=== PATIENT | female | born 1960 | race Caucasian/White ===

== ENCOUNTER → 2019-12-23 11:47 | Outpatient (CLI) | payer OTHER, SELFPAY ==
--- NOTE | ~2019-12-23 | MM_ITS ---
EXAMINATION: MM screening silvia BI w chai HISTORY: Screening mammogram, family history of breast cancer in her mother and sister. TECHNIQUE: Craniocaudal and mediolateral oblique 3-D tomosynthesis images were obtained and synthetic 2-D images were generated. CAD analysis was submitted and interpreted. COMPARISON: 10/05/2017, 02/04/2016, 12/31/2013 BREAST PARENCHYMAL COMPOSITION: The breasts are almost entirely fatty. FINDINGS: There is no evidence of suspicious mass, calcification, or architectural distortion to sugg est malignancy in either breast. There has been no suspicious interval change. IMPRESSION: 1. No mammographic evidence of malignancy. 2. Recommend routine screening mammography in one year. BI-RADS Category 1: Negative Reviewed, dictated and finalized at location A. INJECTION MOLD TECHNICIAN
== END ==
PROVIDERS: PCP Family Medicine; Referring Provider Obstetrics & Gynecology; Visit Provider Nurse Practitioner Family
DX: Z12.31 Encounter for screening mammogram for malignant neoplasm of breast (principal)
CPT/HCPCS: 77063; 77067

== ENCOUNTER 2020-08-30 15:30 | Outpatient (CLI) | payer OTHER, SELFPAY ==
[2020-08-30 16:24] LABS: Alanine Aminotransferase 16 U/L (4-35); Albumin Level 4.1 g/dL (3.5-5.1); Alkaline Phosphatase 111 U/L (38-126); Anion Gap 8 mmol/L (8-16); Aspartate Amino Transferase 21 U/L (14-36); Bilirubin,Total 0.4 mg/dL (0.2-1.3); Blood Urea Nitrogen 13 mg/dL (7-17); Calcium 9.3 mg/dL (8.4-10.2); Carbon Dioxide 32 mmol/L (22-30); Chloride 101 mmol/L (98-107); Estimated Glomerular Filt Rate > 60; Glucose 104 mg/dL (65-105); Potassium 4.2 mmol/L (3.4-5.0); Sodium 141 mmol/L (137-145); Uric Acid 7.1 mg/dL (2.5-7.5)
== END 2020-08-30 15:31 | disposition home or self-care (01) ==
LOC: ANHLAB 15:32
PROVIDERS: PCP Family Medicine; Visit Provider Podiatrist Foot & Ankle Surgery
DX: M10.9 Gout, unspecified (principal)
CPT/HCPCS: 36415; 80053; 84550

== ENCOUNTER 2020-11-12 07:47 | Emergency (ER) | payer OTHER, SELFPAY ==
--- NOTE | ~2020-11-12 | CT_ITS ---
EXAMINATION: CT abdomen pelvis wo con DATE: 11/12/2020 08:23 INDICATION: Left-sided abdominal pain TECHNIQUE: Computed tomography (CT) of the abdomen and pelvis was performed without intravenous contr ast. The dose-length product (DLP) was 1487.21 mGy-cm. Automated exposure control and iterative recon struction technique were employed. COMPARISON: 10/04/2018 FINDINGS: The lung bases are clear. The heart size is normal. The liver, spleen, and pancreas are nor mal. The gallbladder is surgically absent. There is mild enlargement of the common bile duct and cent ral intrahepatic ducts which is likely due to post cholecystectomy state. Bilateral adrenal masses, m easuring up to 2.4 cm on the right, are consistent with adenomas. The kidneys are unremarkable. There is colonic diverticulosis. There is edematous stranding of the pericolic fat near the mid and distal descending colon. No associated fluid or perforation is identified. The appendix is normal. No patho logically enlarged abdominal or pelvic lymph nodes are identified. There is no free intraperitoneal g as or evidence of bowel obstruction. There is a [place] ventral hernia left lower quadrant containi ng nonobstructed small bowel. There are epigastric and lower abdominal wall hernias containing fat. T here is moderate lumbar spondylosis at L5-S1. IMPRESSION: 1. Findings consistent with uncomplicated diverticulitis of the mid and distal descending colon. 2. Multiple ventral hernias. Reviewed, dictated and finalized at location A. RETE TESTER
[2020-11-12 07:59] VITALS: BP 137/71; PULSE 99; RESP 18; TEMP 36.7; O2SAT 96
--- NOTE | 2020-11-12 08:08 | ED.GENADULT ---
HPI - General Adult General Chief complaint: Abdominal Pain Stated complaint: diverticulitis flare up Time Seen by Provider: 11/12/20 08:07 Source: patient History of Present Illness HPI narrative: Patient is a 60 y/o female complaining of left sided abdominal pain starting 2 days ago. She describes her pain as sharp and like a contraction. There is no pain radiation. She rates her pain as 8/10. She took Ibuprofen, which did not help with her pain. She has no fever, chill, vomiting or diarrhea. She has history of diverticulitis. Related Data Home Medications Medication Instructions Recorded Confirmed lrzfprlmkx-zyjyhgukffkgn-mldntusm 1 cap PO Q4H PRN 11/13/19 06/06/20 50 mg-325 mg-40 mg capsule dicyclomine 20 mg tablet 20 mg PO QID 11/13/19 06/06/20 esomeprazole magnesium 40 mg 40 mg PO BID cap 11/13/19 06/06/20 capsule,delayed release Allergies Allergy/AdvReac Type Severity Reaction Status Date / Time Iodinated Contrast Media Allergy Intermediate Hives, RED Verified 11/12/20 08:13 FACE ciprofloxacin Allergy Mild Rash Verified 11/12/20 08:03 codeine Allergy Unknown Nausea Verified 11/12/20 08:03 Contrast Media Allergy Intermediate Hives / Uncoded 11/12/20 08:03 Red Face Review of Systems Constitutional: Constitutional: Denies chills, Denies fever(s), Denies headache(s) and Denies weakness Eyes: Eyes: Denies blurry vision ENT: Denies headache(s) and Denies neck pain Cardiovascular: Cardiovascular: Denies chest pain and Denies dyspnea Respiratory: Respiratory: Denies cough and Denies dyspnea Gastrointestinal: Gastrointestinal: Reports abdominal pain, Denies diarrhea, Denies nausea and Denies vomiting Genitourinary: Genitourinary: Denies hematuria and Denies dysuria Musculoskeletal: Musculoskeletal: Denies back pain and Denies neck pain Neurologic: Denies headache(s) and Denies weakness PMF Family History Family History Sibling Hypertension Father Hypertension Mother Hypertension Family history of malignant neoplasm of breast in first degree relative Social History Social History Smoking status: Never smoker Second hand tobacco smoke exposure: No Alcohol intake: never Gender identity (if verbalized by the patient): Female Exam Const: General: no acute distress and well developed Orientation/consciousness: oriented to person, oriented to place, oriented to time and patient oriented x3 HENMT: Head: normocephalic Ears: external ears normal General nose exam: Normal external nose present Eyes: General: appearance normal, both eyes and all related structures Conjunctivae: conjunctivae normal Neck: Neck: normal visual inspection and full ROM Chest: Chest palpation & inspection: normal inspection of the chest and no tenderness Resp: Effort & Inspection: normal respiratory effort Auscultation: clear to auscultation bilaterally Cardio: Rate: regular rate Rhythm: regular rhythm GI: GI Palp: No abdominal tenderness and Yes Soft to palpation Skin: General skin exam: normal color and turgor normal Neuro: General: oriented to person, oriented to place, oriented to time and patient oriented x3 Cognition (Neuro): normal cognition Extrem: General: normal to inspection, full ROM and no pedal edema Psych: Appearance: grossly normal Mental Status: mental status grossly normal Affect: normal affect Course Vital Signs Vital signs: Vital Signs Temperature 36.7 C 11/12/20 07:59 Pulse Rate 99 11/12/20 07:59 Respiratory Rate 18 11/12/20 07:59 Blood Pressure 137/71 11/12/20 07:59 Pulse Oximetry 96 11/12/20 07:59 Temperature 36.7 C 11/12/20 07:59 Pulse Rate 62 11/12/20 09:20 Respiratory Rate 15 11/12/20 09:20 Blood Pressure 117/66 11/12/20 09:20 Pulse Oximetry 97 11/12/20 09:20 Medical Decision Making Vital Signs Vital Sign
[2020-11-12] MEDS: KETOROLAC 30 MG/ML VIAL (*BKC) IV PUSH (08:15)
[2020-11-12 08:17] LABS: Basophils Absolute Auto 0.1 K/mm3 (0.0-0.1); Basophils Percent Auto 0.7 % (0.2-1.2); Eosinophils Absolute Auto 0.2 K/mm3 (0-0.3); Eosinophils Percent Auto 1.8 % (0-4.4); Hematocrit 42.1 % (37.0-47.0); Hemoglobin 13.2 g/dL (12.0-15.0); Immature Granulocyte Absolute 0.04 K/mm3 (0.00-0.031); Immature Granulocyte Percent A 0.4 % (0-0.5); Lymphocytes Absolute Auto 1.85 K/mm3 (0.9-3.2); Mean Corpuscular HGB Conc 31.4 g/dl (32-36); Mean Corpuscular Hemoglobin 28.1 pg (26-34); Mean Corpuscular Volume 89.8 fl (80-100); Mean Platelet Volume 9.2 fl (7.4-10.4); Monocytes Absolute Auto 0.7 K/mm3 (0.1-0.6); Neutrophils Absolute Auto 8.1 K/mm3 (1.3-6.7); Neutrophils Percent Auto 74.1 % (45.5-73.1); Platelet Count Result 351 k/mm3 (150-375); Red Blood Count 4.69 M/mm3 (4.2-5.4); Red Cell Distribution Width 15.8 % (11.5-14.5); White Blood Count 10.9 K/mm3 (4.5-10.0)
[2020-11-12 08:19] LABS: Add Urine Microscopic? NO; Appearance Urine Clear (Clear); Bilirubin Urine Negative (Negative); Blood Urine Negative (Negative); Color Urine Straw (Yellow); Glucose Urine UA Negative (Negative); Ketones Urine Negative (Negative); Leukocyte Esterase Ur Negative LEU/UL (Negative); Nitrate Urine Negative (Negative); Protein Urine Negative (Negative); Specific Grav Ur 1.013 (1.001-1.035); Urobilinogen Urine Negative mg/dL (<2.0)
[2020-11-12 08:29] LABS: Alanine Aminotransferase 15 U/L (4-35); Albumin Level 4.3 g/dL (3.5-5.1); Alkaline Phosphatase 104 U/L (38-126); Anion Gap 6 mmol/L (8-16); Aspartate Amino Transferase 26 U/L (14-36); Bilirubin,Total 0.6 mg/dL (0.2-1.3); Blood Urea Nitrogen 13 mg/dL (7-17); Carbon Dioxide 30 mmol/L (22-30); Chloride 105 mmol/L (98-107); Estimated CRCL calculation 104 ml/min; Estimated Glomerular Filt Rate > 60; Glucose 105 mg/dL (65-105); Lipase 48 U/L (23-300); Potassium 4.3 mmol/L (3.4-5.0); Sodium 141 mmol/L (137-145)
[2020-11-12 09:20] VITALS: BP 117/66; PULSE 62; RESP 15; O2SAT 97
[2020-11-12 10:06] VITALS: BP 113/67; PULSE 62; RESP 17; O2SAT 96
== END 2020-11-12 10:07 | disposition home or self-care (01) ==
PROVIDERS: Emergency Provider Emergency Medicine; PCP Family Medicine
DX: K57.92 Diverticulitis of intestine, part unspecified, without perforation or abscess without bleeding (principal)
CPT/HCPCS: 36415; 74176; 80053; 81003; 83690; 85025; 96374; 99284; J1885

== ENCOUNTER 2021-04-28 07:54 | Emergency (ER) | payer OTHER, SELFPAY ==
--- NOTE | ~2021-04-28 | CT_ITS ---
EXAMINATION: CT abdomen pelvis wo con DATE: 04/28/2021 10:46 INDICATION: Left lower abdominal pain TECHNIQUE: Computed tomography (CT) of the abdomen and pelvis was performed without intravenous contr ast. The dose-length product was 1503.38 mGy-cm. Automated exposure control and iterative reconstruct ion technique were employed. COMPARISON: CT dated 11/12/2020 FINDINGS: Lung bases are unremarkable. Heart size normal. No significant pleural or pericardial effus ion. There is fatty infiltration of the pancreas. There is a 2.4 cm right adrenal adenoma. The liver, spleen, and kidneys are unremarkable. There is a small low-density mass in the left adrenal gland al so, likely benign adenoma. Status post cholecystectomy. Nonobstructive bowel gas pattern. There is mi ld acute uncomplicated sigmoid diverticulitis. Multiple ventral hernias are present, the largest of w hich contains nonobstructed small bowel. No bowel obstruction. Normal appendix. Mild lumbar spondylos is. IMPRESSION: 1. Acute uncomplicated sigmoid diverticulitis. 2: Multiple ventral hernias. 3: Bilateral adrenal adenomas. Reviewed, dictated and finalized at location A.
[2021-04-28 08:01] VITALS: BP 175/91; PULSE 85; RESP 16; TEMP 36.1; O2SAT 97
[2021-04-28 08:50] LABS: Basophils Absolute Auto 0.1 K/mm3 (0.0-0.1); Basophils Percent Auto 0.7 % (0.2-1.2); Eosinophils Absolute Auto 0.2 K/mm3 (0-0.3); Eosinophils Percent Auto 2.1 % (0-4.4); Hematocrit 41.9 % (37.0-47.0); Hemoglobin 12.9 g/dL (12.0-15.0); Immature Granulocyte Absolute 0.02 K/mm3 (0.00-0.031); Immature Granulocyte Percent A 0.2 % (0-0.5); Lymphocytes Absolute Auto 1.34 K/mm3 (0.9-3.2); Lymphocytes Percent Auto 15.7 % (18.3-44.2); Mean Corpuscular HGB Conc 30.8 g/dl (32-36); Mean Corpuscular Hemoglobin 27.2 pg (26-34); Mean Corpuscular Volume 88.4 fl (80-100); Mean Platelet Volume 9.3 fl (7.4-10.4); Monocytes Absolute Auto 0.5 K/mm3 (0.1-0.6); Monocytes Percent Auto 5.6 % (2.6-8.5); Neutrophils Absolute Auto 6.5 K/mm3 (1.3-6.7); Neutrophils Percent Auto 75.7 % (45.5-73.1); Platelet Count Result 350 k/mm3 (150-375); Red Blood Count 4.74 M/mm3 (4.2-5.4); Red Cell Distribution Width 15.7 % (11.5-14.5); White Blood Count 8.6 K/mm3 (4.5-10.0)
[2021-04-28 09:01] LABS: Add Urine Microscopic? YES; Appearance Urine Cloudy (Clear); Bacteria Urine 3+ /hpf; Bilirubin Urine Negative (Negative); Blood Urine 2+ (Negative); Color Urine Yellow (Yellow); Glucose Urine UA Negative (Negative); Ketones Urine Negative (Negative); Leukocyte Esterase Ur 1+ LEU/UL (Negative); Mucus Urine Rare /lpf; Nitrate Urine Negative (Negative); Protein Urine Negative (Negative); Specific Grav Ur 1.008 (1.001-1.035); Squamous Epithelial Cell Urine Many /hpf (Few); Transitional Epi Cells Urine Rare /hpf (None Seen); Urobilinogen Urine Negative mg/dL (<2.0); WBC Urine 16-20 /hpf
[2021-04-28 09:04] LABS: Alanine Aminotransferase 14 U/L (4-35); Albumin Level 4.4 g/dL (3.5-5.1); Alkaline Phosphatase 115 U/L (38-126); Anion Gap 10 mmol/L (8-16); Aspartate Amino Transferase 27 U/L (14-36); Bilirubin,Total 0.7 mg/dL (0.2-1.3); Blood Urea Nitrogen 9 mg/dL (7-17); Calcium 9.4 mg/dL (8.4-10.2); Carbon Dioxide 25 mmol/L (22-30); Chloride 106 mmol/L (98-107); Estimated CRCL calculation 121 ml/min; Estimated Glomerular Filt Rate > 60; Glucose 111 mg/dL (65-105); Lipase 42 U/L (23-300); Potassium 4.8 mmol/L (3.4-5.0); Sodium 141 mmol/L (137-145)
--- NOTE | 2021-04-28 09:58 | PC.NURSE ---
pt had hyst. no urine preg needed
[2021-04-28 10:07] VITALS: BP 160/83; PULSE 64; RESP 18; O2SAT 95
[2021-04-28] MEDS: ONDANSETRON INJ 4 MG/2 ML VIAL IV PUSH (11:00)
[2021-04-28] MEDS: HYDROmorphone HCL INJ (*CRX) 1 MG/ML SYR 0.5 MG IV PUSH (11:00)
--- NOTE | 2021-04-28 11:23 | ED.ABDPAIN ---
HPI - Abdominal Pain General Chief Complaint: Abdominal Pain Stated Complaint: LLQ abdominal pain Time Seen by Provider: 04/28/21 08:25 Source: patient, RN notes reviewed and old records reviewed Mode of arrival: ambulatory Limitations: no limitations History of Present Illness HPI narrative: This is a 60 year old female with history of diverticulitis, constipation who presents for evaluation of left lower abdominal pain. She reports she has intermittent lower abdominal pain for months but this episode started last night. She reports severe lower left abdominal pain . She was diagnosed with diverticulitis in November, and she has completed antibiotics. She states she was initially started on Flagyl/Cipro but she had severe side effects so she was changed to Augmentin. She reports continued abdominal pain since November. She has been seen by her GI specialist since completing her antibiotics and she has been placed on Linzess and Bentyl. She denies fever, chills, nausea, vomiting or urinary complaints. Related Data Home Medications Medication Instructions Recorded Confirmed eiuxgtsnkz-tobrjqnayswop-mlskwpak 1 cap PO Q4H PRN 11/13/19 06/06/20 50 mg-325 mg-40 mg capsule dicyclomine 20 mg tablet 20 mg PO QID 11/13/19 06/06/20 esomeprazole magnesium 40 mg 40 mg PO BID cap 11/13/19 06/06/20 capsule,delayed release Allergies Allergy/AdvReac Type Severity Reaction Status Date / Time Iodinated Contrast Media Allergy Intermediate Hives, RED Verified 04/28/21 08:08 FACE ciprofloxacin Allergy Mild Rash Verified 04/28/21 08:08 codeine Allergy Unknown Nausea Verified 04/28/21 08:08 Contrast Media Allergy Intermediate Hives / Uncoded 04/28/21 08:08 Red Face Review of Systems Review of Systems: All systems reviewed & are unremarkable except as noted in HPI and below Constitutional: Constitutional: Denies chills and Denies fever(s) Gastrointestinal: Gastrointestinal: Reports abdominal pain, Reports constipation, Denies diarrhea and Denies vomiting Genitourinary: Genitourinary: Denies hematuria and Denies dysuria Musculoskeletal: Musculoskeletal: Reports back pain [facility] Past Medical History Medical History (Updated 04/28/21 @ 11:30 by Eladia Chi MD) Adrenal adenoma Anxiety disorder, unspecified Diverticulosis of large intestine without hemorrhage Surgical History Surgical History (Updated 04/28/21 @ 11:28 by Eladia Chi MD) Hx of cholecystectomy Family History Family History Sibling Hypertension Father Hypertension Mother Hypertension Family history of malignant neoplasm of breast in first degree relative Social History Social History Smoking status: Never smoker Second hand tobacco smoke exposure: No Alcohol intake: never Gender identity (if verbalized by the patient): Female Exam Const: General: no acute distress and alert Nutritional Appearance: obese Orientation/consciousness: patient oriented x3 Eyes: EOM: EOMs intact bilaterally Resp: Effort & Inspection: normal respiratory effort and no retractions Auscultation: clear to auscultation bilaterally Cardio: Rate: regular rate Rhythm: regular rhythm Heart sounds: no murmurs GI: GI Palp: Yes Soft to palpation, Yes Tenderness to palpation present (GI) (Diffuse), No Guarding due to palpation present (GI) and No Rigid due to palpation Auscultation: normal bowel sounds Neuro: General: patient oriented x3, moves all extremities and CN's II-XI intact bilaterally Psych: Mental Status: mental status grossly normal Affect: normal affect Course Reevaluation(s) Reevaluation #1: I have discussed with patient CT and labs. She agrees with starting augmentin for her diverticulitis. She reports pain improved after receiving Dilaudid . Date: 04/28/21 Time: 11:28 Vital Signs Vital signs: Vital Signs
[2021-04-28 12:06] VITALS: BP 166/80; PULSE 72; RESP 18; O2SAT 97
== END 2021-04-28 12:05 | disposition home or self-care (01) ==
PROVIDERS: Emergency Provider General Practice; PCP Family Medicine
DX: K57.32 Diverticulitis of large intestine without perforation or abscess without bleeding (principal); F41.9 Anxiety disorder, unspecified; D35.02 Benign neoplasm of left adrenal gland; D35.01 Benign neoplasm of right adrenal gland; K43.9 Ventral hernia without obstruction or gangrene
CPT/HCPCS: 36415; 74176; 80053; 81001; 83690; 85025; 87086; 87088; 96374; 96375; 99284; J1170; J2405

== ENCOUNTER 2021-05-02 20:13 | Observation (INO) | payer OTHER, SELFPAY ==
--- NOTE | ~2021-05-02 | CT_ITS ---
EXAMINATION: CT abdomen pelvis wo con EXAM DATE: 05/02/2021 22:11 INDICATION: Left lower quadrant pain . TECHNIQUE: Spiral CT of the abdomen and pelvis was performed without contrast. Axial, coronal and s agittal images of the abdomen and pelvis were reviewed. The dose-length product (DLP) for this exami nation was 1377.48 mGy-cm. The exposure was tailored according to patient size (auto mA exposure con trol), and iterative reconstruction (ASIR) was used as additional dose reduction technique. Compariso n is made to prior examination from 04/28/2021. FINDINGS: Bilateral adrenal adenomas, larger on the right at 2.4 cm. The liver, spleen, adrenal glan ds and pancreas are otherwise unremarkable. There are cholecystectomy clips. There is no nephrolith iasis or hydronephrosis. Partial hysterectomy or small uterus. The bladder is unremarkable. There is no retroperitoneal or pelvic lymphadenopathy. There is mild scattered arteriosclerotic disease. Again there is mild to moderate descending and sigmoid colonic diverticulosis with moderate amount of inflammation, mild increase compared to previous examination. No abscess or perforation. Although fi ndings above are most consistent with acute diverticulitis, rarely inflammatory cancer can have a sim ilar appearance. Therefore recommend treating patient for acute diverticulitis and then obtaining a 2 -4 week followup abdomen pelvis CT. Alternatively, if patient has not had recent colonoscopy, followu p colonoscopy could be considered. The appendix is normal. There is small sliding gastroesophageal hiatal hernia. There is expected am ount of colonic stool. No free intraperitoneal gas. The heart is normal in size. There are no pe ricardial or pleural effusions. The lung bases are unremarkable. There are no osteoblastic or osteo lytic lesions identified. There is large left infraumbilical hernia containing fat and nonobstructed small bowel. IMPRESSION: 1. Mild increase in inflammation surrounding the descending/sigmoid colon, most likely acute uncompl icated diverticulitis. Inflammatory cancer less likely. 2. Large ventral hernia containing nonobstructed small bowel. 3. Small gastroesophageal hiatal hernia. 4. Adrenal adenomas. Reviewed, dictated and finalized at location G. IMPRESSION: 1. Mild increase in inflammation surrounding the descending/sigmoid colon, mos t likely acute uncomplicated diverticulitis. Inflammatory cancer less likely. 2. Large ventral hernia containing nonobstructed small bowel. 3. Small gastroesophageal hiatal hernia. 4. Adrenal adenomas.
[2021-05-02 20:14] VITALS: PULSE 82; RESP 14; TEMP 37.4; O2SAT 99
[2021-05-02 20:23] VITALS: BP 177/80; PULSE 72; RESP 16; TEMP 36.6; O2SAT 98
[2021-05-02 20:34] LABS: Basophils Absolute Auto 0.1 K/mm3 (0.0-0.1); Basophils Percent Auto 0.4 % (0.2-1.2); Eosinophils Absolute Auto 0.2 K/mm3 (0-0.3); Eosinophils Percent Auto 1.6 % (0-4.4); Hematocrit 44.1 % (37.0-47.0); Hemoglobin 13.6 g/dL (12.0-15.0); Immature Granulocyte Absolute 0.03 K/mm3 (0.00-0.031); Immature Granulocyte Percent A 0.2 % (0-0.5); Lymphocytes Absolute Auto 1.94 K/mm3 (0.9-3.2); Lymphocytes Percent Auto 15.1 % (18.3-44.2); Mean Corpuscular HGB Conc 30.8 g/dl (32-36); Mean Corpuscular Hemoglobin 27.6 pg (26-34); Mean Corpuscular Volume 89.5 fl (80-100); Monocytes Absolute Auto 0.6 K/mm3 (0.1-0.6); Monocytes Percent Auto 4.7 % (2.6-8.5); Platelet Count Result 401 k/mm3 (150-375); Red Blood Count 4.93 M/mm3 (4.2-5.4); Red Cell Distribution Width 15.4 % (11.5-14.5); White Blood Count 12.9 K/mm3 (4.5-10.0)
[2021-05-02 20:46] LABS: Alanine Aminotransferase 15 U/L (4-35); Albumin Level 4.6 g/dL (3.5-5.1); Alkaline Phosphatase 123 U/L (38-126); Anion Gap 9 mmol/L (8-16); Aspartate Amino Transferase 25 U/L (14-36); Bilirubin,Total 0.5 mg/dL (0.2-1.3); Blood Urea Nitrogen 10 mg/dL (7-17); Calcium 9.9 mg/dL (8.4-10.2); Carbon Dioxide 30 mmol/L (22-30); Chloride 103 mmol/L (98-107); Estimated CRCL calculation 92 ml/min; Estimated Glomerular Filt Rate > 60; Glucose 103 mg/dL (65-105); Lipase 58 U/L (23-300); Potassium 4.3 mmol/L (3.4-5.0); Sodium 142 mmol/L (137-145)
--- NOTE | 2021-05-02 20:54 | ED.ABDPAIN ---
HPI - Abdominal Pain General Chief Complaint: Abdominal Pain Stated Complaint: abd pain Time Seen by Provider: 05/02/21 20:33 Source: patient Mode of arrival: ambulatory Limitations: no limitations History of Present Illness HPI narrative: Patient is a 60-year-old female complaining of lower abdominal pain, 8 out of 10, sharp, nonradiating that started 1 week ago. Patient was seen here on 04/28 and was diagnosed with acute diverticulitis and was placed on oral antibiotics. Patient states that she is not feeling better. Related Data Home Medications Medication Instructions Recorded Confirmed oounndvkox-lhhrumqvtiztr-rkywruyd 1 cap PO Q4H PRN 11/13/19 06/06/20 50 mg-325 mg-40 mg capsule dicyclomine 20 mg tablet 20 mg PO QID 11/13/19 06/06/20 esomeprazole magnesium 40 mg 40 mg PO BID cap 11/13/19 06/06/20 capsule,delayed release Allergies Allergy/AdvReac Type Severity Reaction Status Date / Time Iodinated Contrast Media Allergy Intermediate Hives, RED Verified 05/02/21 20:13 FACE ciprofloxacin Allergy Mild Rash Verified 05/02/21 20:13 codeine Allergy Unknown Nausea Verified 05/02/21 20:13 Contrast Media Allergy Intermediate Hives / Uncoded 05/02/21 20:13 Red Face Review of Systems Review of Systems: All systems reviewed & are unremarkable except as noted in HPI and below Constitutional: Constitutional: Denies body ache(s), Denies chills, Denies excessive sweating, Denies fatigue, Denies fever(s), Denies headache(s), Denies lethargy, Denies malaise, Denies weakness and Denies weight loss Eyes: Eyes: Denies blurry vision, Denies change in vision and Denies loss of vision ENT: Denies dizziness, Denies ear discharge, Denies headache(s), Denies lip swelling, Denies epistaxis, Denies nasal congestion, Denies neck pain, Denies throat swelling and Denies tongue swelling Cardiovascular: Cardiovascular: Denies chest pain, Denies chest pain at rest, Denies chest pain with activity, Denies diaphoresis, Denies rapid heart rate, Denies edema, Denies irregular heart rhythm, Denies lightheadedness, Denies palpitations, Denies dyspnea and Denies dyspnea on exertion Respiratory: Respiratory: Denies chest congestion, Denies cough, Denies hemoptysis, Denies dyspnea and Denies dyspnea on exertion Gastrointestinal: Gastrointestinal: Denies melena, Denies hematochezia, Denies diarrhea, Denies nausea, Denies vomiting and Denies hematemesis Musculoskeletal: Musculoskeletal: Denies abnormal gait, Denies deformity, Denies joint swelling, Denies limited range of motion, Denies neck pain and Denies numbness Neurologic: Denies Abnormal speech present, Denies abnormal gait, Denies confusion, Denies dizziness, Denies headache(s), Denies focal weakness, Denies loss of vision, Denies numbness, Denies Other visual disturbances, Denies Sensory deficit (Neuro) and Denies weakness Psychiatric: Psychiatric: Denies confusion, Denies depression, Denies auditory hallucinations, Denies homicidal ideation and Denies suicidal ideation Endocrine: Endocrine: Denies cold intolerance, Denies excessive sweating, Denies fatigue, Denies heat intolerance and Denies palpitations Hematologic/Lymphatic: Hematologic/Lymphatic: Denies easy bleeding and Denies easy bruising Allergic/Immunologic: Allergic/Immunologic: Denies lip swelling, Denies throat swelling and Denies tongue swelling PMFSH Past Medical History Medical History Adrenal adenoma Anxiety disorder, unspecified Diverticulosis of large intestine without hemorrhage Surgical History Surgical History Hx of cholecystectomy Family History Family History Sibling Hypertension Father Hypertension Mother Hypertension Family history of malignant neoplasm of breast in first degree relative Social History Social History (Reviewed
[2021-05-02] MEDS: KETOROLAC 30 MG/ML VIAL (*BKC) IV PUSH (21:54)
[2021-05-02] MEDS: LACTATED RINGERS 1,000 ML 999 ML IV CONT (21:54)
[2021-05-02 22:01] LABS: Add Urine Microscopic? YES; Appearance Urine Clear (Clear); Bacteria Urine Trace /hpf; Bilirubin Urine Negative (Negative); Blood Urine 2+ (Negative); Color Urine Straw (Yellow); Glucose Urine UA Negative (Negative); Ketones Urine Negative (Negative); Leukocyte Esterase Ur Negative LEU/UL (Negative); Mucus Urine Rare /lpf; Nitrate Urine Negative (Negative); Protein Urine Negative (Negative); Squamous Epithelial Cell Urine Few /hpf (Few); Urobilinogen Urine Negative mg/dL (<2.0)
--- NOTE | 2021-05-03 00:17 | ADMGEN ---
This patient, Vicky Hammond, was admitted to [facility] Surg Room 309-01. Patient/family oriented to hospital policies and general routines including ID bracelet, bed and alarms, visiting hours, pain management, procedures, bathroom and other care routines, personal items, smoking policy, room service/diet, and visiting hours. Information on how to activate the Rapid Response Team has been discussed. Patient/Family are encouraged to report perceived risks to care and to ask questions if they do not understand what they are told or what they should do.
[2021-05-03 00:22] VITALS: BMI 47.5
[2021-05-03 00:23] VITALS: BP 123/57; PULSE 62; RESP 18; TEMP 36.1; O2SAT 98
--- NOTE | 2021-05-03 00:58 | PM.IMHP ---
H&P: HPI History of Present Illness Date/Time: 05/02/21 23:15 Chief Complaint: abdominal pain, recent diagnosis of diverticulitis Narrative: 60-year-old female with a past medical history of obesity, irritable bowel syndrome, diverticulosis with history of diverticulitis who presented to the ER with worsening abdominal pain for the last week. she reports that she developed left lower quadrant abdominal pain approximately 8 days ago. She came to the ER 5 days ago and was given a prescription for Augmentin after CT scan demonstrated acute diverticulitis. Despite taking antibiotics as directed the patient has had persistent cramping left lower quadrant abdominal pain that is worse after eating. The pain is a 10/10 it is worsened currently 7/10 after receiving Toradol in the ER. It is not accompanied by any nausea or vomiting. She reports that she has issues with IBS with constipation and takes Linzess. After she takes her Linzess she usually has loose stools for the rest the day. She has not had any mucousy stools or blood in her stools. She denies any fevers but has had some chills. She had a prior episode of diverticulitis about 5 years ago. She reports that she does have intermittent to somewhat chronic left lower abdominal pain. She feels like her abdominal symptoms affect her life on a day-to-day basis. She reports that her weight has been stable. She is having difficulty finding motivation to lose weight and exercise. She reports that she feels tired often but usually does not feel tired when she wakes up. She denies any snoring or excessive daytime sleepiness. Review of Systems Review of Systems: Narrative: 12 systems were reviewed with pertinent positives and negatives per HPI. Except as documented in the HPI, all other systems were reviewed and are negative. [facility] Past Medical History Medical History (Updated 05/03/21 @ 03:20 by Grace Wesley DO) Adrenal adenoma Anxiety disorder, unspecified COVID-19 vaccine series completed Diverticulosis of large intestine without hemorrhage With history of diverticulitis 2017 GERD (gastroesophageal reflux disease) Hepatic steatosis Hypothyroidism Irritable bowel disease Obesity Surgical History Surgical History (Updated 05/03/21 @ 01:03 by Grace Wesley DO) H/O hysterectomy for benign disease History of History of unilateral oophorectomy History of ventral hernia repair Hx of cholecystectomy x2 Hx of tonsillectomy Family History Family History Sibling Hypertension Father , at age 79 Hypertension Abdominal aortic aneurysm Mother , at age 82 Hypertension Breast cancer, Onset Age: 52 Social History Social History (Updated 05/03/21 @ 01:09 by Grace Wesley DO) Social History: She has been for 27 years. She has 2 children son who is 38 and arteries 34. 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 She is a lifelong nonsmoker. She does not drink alcohol. She denies illicit substance use. Primary care physician: Dr. Ron Malik code status: Full code surrogate decision maker: Smoking status: Former smoker Second hand tobacco smoke exposure: No Alcohol intake: never Substance use: never Substance use type: does not use Gender identity (if verbalized by the patient): Female Spiritual care concerns: No Comments She has 5 sisters and 3 brothers. Several liver siblings have hypertension. One has renovascular hypertension. Meds Home Medications and Allergies Home Medications Medication Instructions Recorded Confirmed Type dicyclomine 20 mg tablet 20 mg PO QID 11/13/19 05/03/21 History esomeprazole magnesium 40 mg 40 mg PO BID cap 11/13/19 05/03/21 History capsule,delayed release alprazolam 0.5 mg tablet 0.5 mg PO BID PRN #20 tablet 03/05/20 05/03/21 Rx furosemide 20 mg ta
[2021-05-03] MEDS: LACTATED RINGERS 1,000 ML 125 ML IV CONT ×3 (01:04→20:05)
[2021-05-03 06:00] VITALS: BP 130/66; PULSE 57; RESP 18; TEMP 35.8; O2SAT 95
[2021-05-03] MEDS: LEVOTHYROXINE SODIUM 100 MCG TABLET PO (06:08)
[2021-05-03] MEDS: LEVOTHYROXINE SODIUM 75 MCG TABLET PO (06:08)
[2021-05-03] MEDS: ESCITALOPRAM OXALATE 10 MG TABLET PO (09:07)
[2021-05-03] MEDS: DICYCLOMINE HCL 10 MG CAPSULE 20 MG PO ×4 (09:07→20:05)
[2021-05-03] MEDS: PANTOPRAZOLE 40 MG TABLET PO ×2 (09:08→16:22)
[2021-05-03] MEDS: ENOXAPARIN 40 MG/0.4 ML SYRINGE SUB-Q (09:55)
[2021-05-03 12:22] VITALS: O2SAT 94
--- NOTE | 2021-05-03 13:16 | PM.IMPN ---
Progress Note: A&P Assessment and Plan (1) Acute diverticulitis: Code(s): K57.92 - Diverticulitis of intestine, part unspecified, without perforation or abscess without bleeding Status: Acute Assessment and Plan: Patient presents with worsening abdominal pain. ED visit 04/28 - discharged with oral antibiotics. Returned with worsening abdominal pain. Repeat CT abd/pel shows acute diverticulitis without perforation or abscess. Recommend follow up CT 2-4 weeks given the amount of inflammation. Continue antibiotics with IV Zosyn. Supportive care with tylenol, home Bentyl. Low fiber diet. Seen by signal operator technical. (2) Hypothyroidism: Qualifiers: Hypothyroidism type: acquired Qualified Code(s): E03.9 - Hypothyroidism, unspecified Code(s): E03.9 - Hypothyroidism, unspecified Status: Chronic Assessment and Plan: Continue home levothyroxine. (3) Anxiety disorder, unspecified: Qualifiers: Anxiety disorder type: generalized anxiety disorder Qualified Code(s): F41.1 - Generalized anxiety disorder Code(s): F41.9 - Anxiety disorder, unspecified Status: Chronic Assessment and Plan: Stable. Continue home medications. (4) Irritable bowel syndrome (IBS): Code(s): K58.9 - Irritable bowel syndrome without diarrhea Status: Chronic Assessment and Plan: Continue home Bentyl. Her reject opener is Dr Buchanan. (5) GERD (gastroesophageal reflux disease): Code(s): K21.9 - Gastro-esophageal reflux disease without esophagitis Status: Chronic Assessment and Plan: PPI. Subjective Date/time seen: 05/03/21 13:00 Interval history: Ms. Hammond is a pleasant 60yo F admitted with acute diverticulitis. She reports feeling maybe a little improved today. Reports left lower quadrant abdominal pain is present but improved some. A BM this morning was partly liquid, partly formed without blood. Denies nausea or vomiting. Has tolerated some yogurt and an georgian muffin for breakfast. Review of Systems Review of Systems: All systems reviewed & are unremarkable except as noted in HPI and below Exam Narrative: Exam Narrative: General: Female resting supine in bed in no acute distress. HEENT: Normocephalic, EOMI, oral mucosa moist. Cardiovascular: Rate and rhythm are regular. Respiratory: Lungs clear to auscultation bilaterally. Respirations even and non-labored. Tolerating room air. Abdomen: Soft, non-distended, bowel sounds present. Tenderness to palpation of left lower quadrant without guarding. Extremities: Peripheral pulses intact. No edema or pain to palpation. Neuro: Awake and alert; answering questions appropriately. No focal neurological deficits. Speech is clear. Objective Data Vital Signs Vital Signs: Last Vital Signs Temp 96.5 F L 05/03/21 06:00 Pulse 57 L 05/03/21 06:00 Resp 18 05/03/21 06:00 BP 130/66 05/03/21 06:00 Pulse Ox 94 05/03/21 12:22 Intake/Output Intake/Output: Intake & Output 04/30/21 05/01/21 05/02/21 05/03/21 23:59 23:59 23:59 23:59 Intake Total 1000 1460 Balance 1000 1460 Meds/Results Medications: Active Medications Generic Name Dose Route Start Last Admin Trade Name Freq PRN Reason Stop Dose Admin Alprazolam 0.5 mg 05/03/21 01:11 Alprazolam (*Crx) 0.5 Mg Tablet PO BID PRN anxiety Dicyclomine HCl 20 mg 05/03/21 09:00 05/03/21 12:20 Dicyclomine Hcl 10 Mg Capsule PO 20 mg QID JONATHAN Administration Enoxaparin Sodium 40 mg 05/03/21 09:00 05/03/21 09:55 Enoxaparin 40 Mg/0.4 Ml Syringe SUB-Q 40 mg DAILY JONATHAN Administration Escitalopram Oxalate 10 mg 05/03/21 09:00 05/03/21 09:07 Escitalopram Oxalate 10 Mg Tablet PO 1
--- NOTE | 2021-05-03 13:38 | PCNSR ---
On 05/03/21, the student, Michelle Mendez, provided care and completed [facility] documentation on this patient. I have reviewed the student's documentation and agree with the findings.
[2021-05-03 16:00] VITALS: BP 153/70; PULSE 65; RESP 12; TEMP 36.3; O2SAT 97
[2021-05-03 23:46] VITALS: BP 137/65; PULSE 77; RESP 18; TEMP 36.4; O2SAT 97
[2021-05-04] MEDS: LEVOTHYROXINE SODIUM 100 MCG TABLET PO (06:01)
[2021-05-04] MEDS: LEVOTHYROXINE SODIUM 75 MCG TABLET PO (06:01)
[2021-05-04 08:00] VITALS: PULSE 77; RESP 18; O2SAT 97
[2021-05-04] MEDS: ENOXAPARIN 40 MG/0.4 ML SYRINGE SUB-Q (08:17)
[2021-05-04] MEDS: DICYCLOMINE HCL 10 MG CAPSULE 20 MG PO (08:17)
[2021-05-04] MEDS: PANTOPRAZOLE 40 MG TABLET PO (08:17)
[2021-05-04] MEDS: ESCITALOPRAM OXALATE 10 MG TABLET PO (08:17)
--- NOTE | 2021-05-04 11:11 | PM.DS ---
DS: Admitting Diagnosis Admitting Diagnosis Admitting Diagnosis: Acute diverticulitis DS: Discharge Diagnosis Discharge Diagnosis (1) Acute diverticulitis: Code(s): K57.92 - Diverticulitis of intestine, part unspecified, without perforation or abscess without bleeding Status: Acute Assessment and Plan: Date of Admission 05/02/21 Date of Discharge 05/04/21 Ms. Hammond is a very pleasant 60yo F with history of irritable bowel syndrome, hypothyroidism, anxiety, GERD who presented to the ED for evaluation of worsening abdominal pain. She was seen in our ED 04/28/21, diagnosed with acute diverticulitis and appropriately discharged with oral Augmentin (patient has intolerance to Cipro). Patient took the antibiotics as prescribed which ultimately did not provide much relief in her abdominal pain/cramping thus she presented to the ED for re-evaluation 05/02/21. Repeat CT abd/pelvis again showed diverticulitis without evidence of perforation or abscess. Given the degree of inflammation, the radiologist who read the study recommended repeat CT in 2-4 weeks. She was admitted to the hospitalist service for management of acute diverticulitis. She was started on broad-spectrum abx with IV Zosyn which she tolerated well. She was treated supportively with Bentyl, tylenol, IV hydration, bowel rest and her diet was advanced gradually. She clinically improved and was tolerating a low-fiber diet prior to discharge. She was seen by the bakery worker and was educated on following a low-fiber diet during acute illness, and taught that she may benefit from following a high-fiber diet after her acute flare to help reduce incidence of repeat episodes. She is feeling better and is hemodynamically stable for discharge 05/04/21. She has most of the oral augmentin leftover at home from her ED visit and is prescribed an additional script to continue Augmentin for total 14 day course. She is encouraged to follow up with her PCP and her seal skinner, Dr Buchanan. (2) Hypothyroidism: Qualifiers: Hypothyroidism type: acquired Qualified Code(s): E03.9 - Hypothyroidism, unspecified Code(s): E03.9 - Hypothyroidism, unspecified Status: Chronic Assessment and Plan: Maintained on home levothyroxine. (3) Anxiety disorder, unspecified: Qualifiers: Anxiety disorder type: generalized anxiety disorder Qualified Code(s): F41.1 - Generalized anxiety disorder Code(s): F41.9 - Anxiety disorder, unspecified Status: Chronic Assessment and Plan: Stable. Continue home medications. (4) Irritable bowel syndrome (IBS): Code(s): K58.9 - Irritable bowel syndrome without diarrhea Status: Chronic Assessment and Plan: Continue home Bentyl. Her seal skinner is Dr Buchanan. (5) GERD (gastroesophageal reflux disease): Code(s): K21.9 - Gastro-esophageal reflux disease without esophagitis Status: Chronic Assessment and Plan: PPI. DS: Summary Hospital Course Hospital Course: See above. Time Spent with Patient Time attestation: Total time spent providing and/or coordinating discharge services: 35 minutes Exam Narrative: Exam Narrative: General: Female resting supine in bed in no acute distress. HEENT: Normocephalic, EOMI, oral mucosa moist. Cardiovascular: Rate and rhythm are regular. Respiratory: Lungs clear to auscultation bilaterally. Respirations even and non-labored. Tolerating room air. Abdomen: Soft, non-distended, bowel sounds present. Tenderness to palpation of left lower quadrant without guarding. Extremities: Peripheral pulses intact. No edema or pain to palpation. Neuro: Awake and alert; answering questions appropriately. No focal neurological deficits. S
--- NOTE | 2021-05-14 08:30 | PC.NURSE ---
Blood cx are negative.
== END 2021-05-04 14:10 | disposition home or self-care (01) ==
LOC: ANHED 23:00 → ANH3MEDSUR 05-03 10:11
PROVIDERS: Admitting Provider Internal Medicine; Emergency Provider Emergency Medicine; PCP Family Medicine; Visit Provider Internal Medicine
DX: K57.92 Diverticulitis of intestine, part unspecified, without perforation or abscess without bleeding (principal); E03.9 Hypothyroidism, unspecified; F41.9 Anxiety disorder, unspecified; K58.9 Irritable bowel syndrome, unspecified; K21.9 Gastro-esophageal reflux disease without esophagitis; R10.9 Unspecified abdominal pain; D35.00 Benign neoplasm of unspecified adrenal gland; K44.9 Diaphragmatic hernia without obstruction or gangrene; K43.9 Ventral hernia without obstruction or gangrene; E66.9 Obesity, unspecified; Z68.42 Body mass index [BMI] 45.0-49.9, adult; R68.83 Chills (without fever); K76.0 Fatty (change of) liver, not elsewhere classified; Z82.49 Family history of ischemic heart disease and other diseases of the circulatory system; Z79.899 Other long term (current) drug therapy; Z90.49 Acquired absence of other specified parts of digestive tract; Z79.891 Long term (current) use of opiate analgesic
CPT/HCPCS: 36415; 74176; 80053; 81001; 83690; 85025; 87040; 96361; 96365; 96366; 96372; 96374; 96376; 99285; A9270; G0378; J1650; J1885; J2543; J7120

== ENCOUNTER → 2021-08-10 09:08 | Outpatient (CLI) | payer OTHER, SELFPAY ==
--- NOTE | ~2021-08-10 | US_ITS ---
EXAMINATION: US abdomen complete DATE: 08/10/2021 09:31 INDICATION: Gaseous abdominal distention with bloating and discomfort. TECHNIQUE: Multiple grayscale and Doppler ultrasound images of the abdomen were obtained. COMPARISON: CT dated 05/02/2021 FINDINGS: Abdominal aorta is normal in caliber measuring 2.4 cm at the proximal aorta, 1.6 mm in the mid aorta and tapering to 1.4 cm in the distal aorta. The visualized proximal to mid inferior vena cava is norm al. The pancreatic head and body are normal in appearance. The pancreatic tail is not visualized. Li gutierrez has normal echogenicity and contour, with a smooth surface. No liver lesion identified. No intrah epatic biliary duct dilation suspected. Portal venous flow was seen in the hepatopetal, normal direct ion and has normal Doppler waveform. The gallbladder is not visualized and reportedly surgically abse nt. Common bile duct measures 6 mm diameter which is normal. There is normal renal contour and echoge nicity bilaterally. The right kidney measures 12.5 x 5.0 x 6.2 cm and the left 12.0 x 5.4 x 5.5 cm. There are no focal renal lesions identified. There is no hydronephrosis. Spleen is normal measuring 11.2 cm in maximal length. IMPRESSION: 1. Status post cholecystectomy. Otherwise normal abdominal ultrasound. Reviewed, dictated and finalized at location A.
== END ==
PROVIDERS: PCP Nurse Practitioner Family; Visit Provider Nurse Practitioner Family
DX: R14.0 Abdominal distension (gaseous) (principal); Z90.49 Acquired absence of other specified parts of digestive tract
CPT/HCPCS: 76700

== ENCOUNTER 2021-09-23 17:18 | Outpatient (CLI) | payer OTHER, SELFPAY ==
--- NOTE | ~2021-09-23 | XR_ITS ---
EXAMINATION: XR chest 2V 09/23/2021 17:36 INDICATION: Headache and cough. Sinusitis. PROCEDURE: 2 view chest COMPARISON: 06/30/2016 FINDINGS: The lungs are clear. The cardiomediastinal silhouette is within normal limits. There are no pleural effusions. There is no pneumothorax suspected. IMPRESSION: 1: NO ACUTE CARDIOPULMONARY DISEASE. Reviewed, dictated and finalized at location A. E BANKER
== END 2021-09-23 17:19 | disposition home or self-care (01) ==
LOC: ANHIMG 17:22
PROVIDERS: PCP Nurse Practitioner Family; Visit Provider Nurse Practitioner Family
DX: R05.9 Cough, unspecified (principal)
CPT/HCPCS: 71046

== ENCOUNTER 2021-10-14 09:08 | Emergency (ER) | payer OTHER, SELFPAY ==
--- NOTE | 2021-10-14 09:15 | ED.URI ---
HPI - URI/Sore Throat General Chief Complaint: Upper Respiratory Infection Stated Complaint: Cough,Congestion Time Seen by Provider: 10/14/21 09:15 Source: patient, RN notes reviewed and old records reviewed Mode of arrival: ambulatory Limitations: no limitations History of Present Illness HPI Narrative: 61-year-old female presents to the [facility] with complaints of cough and congestion. Had a chest x-ray on 09/23, 3 weeks ago which was clear. Patient states that all night she has had this chest discomfort that is radiating to her left arm and left jaw area. Patient described as when she visited [place] and was having trouble with her oxygen levels. States that she has been feeling short of breath. At first thought it was her anxiety, had taken her Xanax with no relief. Has had intermittent shortness of breath. does have a history of anxiety, thyroid issues, acid reflux, depression. Movement does not make it worse. Cannot reproduce pain. Denies any diaphoresis. No nausea vomiting or diarrhea. Denies fevers. Has been on 2 rounds of antibiotics recently for a sinus/bronchitis episode. MD elicited complaint: cough Related Data Home Medications Medication Instructions Recorded Confirmed dicyclomine 20 mg tablet 20 mg PO QID 11/13/19 10/03/21 esomeprazole magnesium 40 mg 40 mg PO BID cap 11/13/19 10/03/21 capsule,delayed release linaclotide 72 mcg capsule 72 mcg PO QAM 05/13/21 10/03/21 Allergies Allergy/AdvReac Type Severity Reaction Status Date / Time Iodinated Contrast Media Allergy Intermediate Hives, RED Verified 09/24/21 16:01 FACE ciprofloxacin Allergy Mild Rash Verified 09/24/21 16:01 codeine Allergy Unknown Nausea Verified 09/24/21 16:01 Contrast Media Allergy Intermediate Hives / Uncoded 09/24/21 16:01 Red Face Review of Systems Review of Systems: All systems reviewed & are unremarkable except as noted in HPI and below Constitutional: Constitutional: Reports no additional constitutional complaints, Denies chills and Denies fever(s) Eyes: Eyes: Reports no additional eye complaints ENT: Reports system reviewed and no additional complaints, except as documented Cardiovascular: Cardiovascular: Reports as per HPI, Reports chest pain (Pressure), Denies rapid heart rate, Reports radiating jaw, neck or arm pain (Left shoulder, left posterior head and neck) and Denies slow heart rate Respiratory: Respiratory: Reports as per HPI, Denies chest congestion, Reports cough, Reports dyspnea and Denies wheezing Gastrointestinal: Gastrointestinal: Reports no additional gastrointestinal complaints, Denies abdominal pain, Denies diarrhea, Denies nausea and Denies vomiting Musculoskeletal: Musculoskeletal: Reports no additional musculoskeletal complaints Integumentary/Breasts: Skin/Breast: Reports system reviewed and no additional complaints, except as docu Neurologic: Reports system reviewed and no additional complaints, except as documented Psychiatric: Psychiatric: Reports no additional psychiatric complaints Allergic/Immunologic: Allergic/Immunologic: Reports no additional allergic/immunologic complaints [facility] Past Medical History Medical History Adrenal adenoma Anxiety disorder, unspecified BMI 45.0-49.9, adult COVID-19 vaccine series completed Diverticulosis of large intestine without hemorrhage With history of diverticulitis 2016 GERD (gastroesophageal reflux disease) Hepatic steatosis Hypothyroidism Irritable bowel disease Irritable bowel syndrome (IBS) Morbid (severe) obesity due to excess calories Obesity Surgical History Surgical History H/O hysterectomy for benign disease History of History of unilateral oophorectomy History of ventral hernia repair Hx of cholecystectomy x2 Hx of tonsillectomy Family History Family History Camryn
[2021-10-14 09:17] VITALS: BP 146/81; PULSE 71; RESP 18; TEMP 36.1; O2SAT 99
--- NOTE | 2021-10-14 09:30 | ECG_ITS ---
Measurements Intervals [place] Rate: 71 P: 40 [place]: 185 QRS: -37 QRSD: 103 T: 32 QT: 397 QTc: 432 Interpretive Statements SINUS RHYTHM LEFT AXIS DEVIATION POOR R WAVE PROGRESSION, ANTERIOR LEADS BASELINE ARTIFACT- I, II, III, AVR, AVF, V1-V6 BORDERLINE ECG Electronically Signed On 10-14-2021 10:04:42 DRIER TENDER by Moiz Arora D.O.
== END 2021-10-14 09:33 | disposition short-term general hospital (02) ==
PROVIDERS: Emergency Provider Nurse Practitioner; PCP Family Medicine
DX: R07.9 Chest pain, unspecified (principal); E03.9 Hypothyroidism, unspecified
CPT/HCPCS: 93005; 99213; G0463

== ENCOUNTER 2021-10-14 09:47 | Emergency (ER) | payer OTHER, SELFPAY ==
[2021-10-14] VITALS (17 sets, daily range): BP systolic 120–195; BP diastolic 62–92; PULSE 57–80; RESP 10–21; TEMP 36.9; O2SAT 95–100
--- NOTE | ~2021-10-14 | XR_ITS ---
EXAMINATION: XR chest 2V DATE: 10/14/2021 10:12 INDICATION: Left chest pain. TECHNIQUE: Frontal and lateral views of the chest were obtained. COMPARISON: Chest 2 views 09/23/2021, CT abdomen and pelvis 05/02/2021 FINDINGS: The chest demonstrates clear lungs without pneumonia, pleural effusion, or pneumothorax. Th e heart size is normal. IMPRESSION: 1. No acute cardiopulmonary disease. Reviewed, dictated and finalized at location A. E BRICK MOLDER
--- NOTE | ~2021-10-14 | NM_ITS ---
NM pulmonary perfusion INDICATION: Chest pain TECHNIQUE: Ventilation scan, 5.5 mCi Tc 99m MAA was injected intravenously for perfusion images. Mul tiple images were then acquired. COMPARISON: Chest x-ray dated 10/14/2021 FINDINGS: The comparison chest radiograph demonstrates no pulmonary infiltrates or pleural fluid. Th e perfusion scan is normal. IMPRESSION: 1: Normal perfusion images. Reviewed, dictated and finalized at location A. TH INFORMATION MANAGER IMPRESSION: 1: Normal perfusion images.
--- NOTE | 2021-10-14 10:02 | ECG_ITS ---
Measurements Intervals [place] Rate: 66 P: 10 MI: 184 QRS: -42 QRSD: 97 T: 18 QT: 384 QTc: 403 Interpretive Statements SINUS RHYTHM LEFT AXIS DEVIATION BORDERLINE R WAVE PROGRESSION, ANTERIOR LEADS BASELINE ARTIFACT- II, III, AVR, AVL, AVF BORDERLINE ECG Electronically Signed On 10-14-2021 12:31:38 CASE PREPARER AND LINER by Moiz Arora D.O.
--- NOTE | 2021-10-14 10:05 | PC.NURSE ---
Pt states she has been experiencing aching chest pain, she states she has a sinus infection a week before thanksgiving and had been coughing excessively
--- NOTE | 2021-10-14 10:06 | PC.NURSE ---
pt gone to xray
[2021-10-14 10:41] LABS: Basophils Absolute Auto 0.1 K/mm3 (0.0-0.1); Basophils Percent Auto 1.1 % (0.2-1.2); Eosinophils Absolute Auto 0.3 K/mm3 (0-0.3); Hematocrit 39.3 % (37.0-47.0); Hemoglobin 12.5 g/dL (12.0-15.0); Immature Granulocyte Absolute 0.03 K/mm3 (0.00-0.031); Immature Granulocyte Percent A 0.5 % (0-0.5); Lymphocytes Absolute Auto 1.65 K/mm3 (0.9-3.2); Lymphocytes Percent Auto 25.5 % (18.3-44.2); Mean Corpuscular HGB Conc 31.8 g/dl (32-36); Mean Corpuscular Hemoglobin 28.7 pg (26-34); Mean Corpuscular Volume 90.1 fl (80-100); Mean Platelet Volume 9.6 fl (7.4-10.4); Monocytes Absolute Auto 0.4 K/mm3 (0.1-0.6); Monocytes Percent Auto 5.7 % (2.6-8.5); Neutrophils Absolute Auto 4.1 K/mm3 (1.3-6.7); Neutrophils Percent Auto 63.2 % (45.5-73.1); Platelet Count Result 313 k/mm3 (150-375); Red Blood Count 4.36 M/mm3 (4.2-5.4); Red Cell Distribution Width 16.5 % (11.5-14.5); White Blood Count 6.5 K/mm3 (4.5-10.0)
[2021-10-14] MEDS: ASPIRIN 81 MG CHEWABLE TABLET 324 MG PO (10:47)
[2021-10-14 10:51] LABS: Prothrombin Time 12.8 Seconds (11.1-14.7)
[2021-10-14 10:52] LABS: Partial Thromboplastin Time 34.5 SECONDS (22.3-36.8)
--- NOTE | 2021-10-14 11:04 | ED.CHESTPAIN ---
HPI - Chest Pain General Chief Complaint: Chest Pain Stated Complaint: Sent from [facility] shoulder pain Time Seen by Provider: 10/14/21 10:52 Source: patient and RN notes reviewed History of Present Illness HPI narrative: Patient is a 61 y/o female complaining of left side chest discomfort since yesterday. She rates her discomfort as 1/10. She states that it radiates to her left neck and shoulder. Pressing on her left side makes it worse. She states that she had recent cough and congestion, but that has resolved. She feels SOB sometimes which she attributed to anxiety. Related Data Home Medications Medication Instructions Recorded Confirmed dicyclomine 20 mg tablet 20 mg PO QID 11/13/19 10/03/21 esomeprazole magnesium 40 mg 40 mg PO BID cap 11/13/19 10/03/21 capsule,delayed release linaclotide 72 mcg capsule 72 mcg PO QAM 05/13/21 10/03/21 Allergies Allergy/AdvReac Type Severity Reaction Status Date / Time Iodinated Contrast Media Allergy Intermediate Hives, RED Verified 10/14/21 11:27 FACE ciprofloxacin Allergy Mild Rash Verified 10/14/21 11:27 codeine Allergy Unknown Nausea Verified 10/14/21 11:27 Contrast Media Allergy Intermediate Hives / Uncoded 10/14/21 11:27 Red Face Review of Systems Constitutional: Constitutional: Denies chills, Denies fever(s), Denies headache(s) and Denies weakness Eyes: Eyes: Denies blurry vision ENT: Denies headache(s) and Denies neck pain Cardiovascular: Cardiovascular: Reports chest pain and Reports dyspnea Respiratory: Respiratory: Reports cough (resolved) and Reports dyspnea Gastrointestinal: Gastrointestinal: Denies abdominal pain, Denies diarrhea, Denies nausea and Denies vomiting Genitourinary: Genitourinary: Denies hematuria and Denies dysuria Musculoskeletal: Musculoskeletal: Denies back pain and Denies neck pain Neurologic: Denies headache(s) and Denies weakness PMFSH Past Medical History Medical History Adrenal adenoma Anxiety disorder, unspecified BMI 45.0-49.9, adult COVID-19 vaccine series completed Diverticulosis of large intestine without hemorrhage With history of diverticulitis 2016 GERD (gastroesophageal reflux disease) Hepatic steatosis Hypothyroidism Irritable bowel disease Irritable bowel syndrome (IBS) Morbid (severe) obesity due to excess calories Obesity Surgical History Surgical History H/O hysterectomy for benign disease History of History of unilateral oophorectomy History of ventral hernia repair Hx of cholecystectomy x2 Hx of tonsillectomy Family History Family History Sibling Hypertension Father , at age 79 Hypertension Abdominal aortic aneurysm Mother , at age 82 Hypertension Breast cancer, Onset Age: 52 Social History Social History Social History: She has been for 27 years. She has 2 children son who is 38 and daughter 34. 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 She is a former smoker. She does not drink alcohol. She denies illicit substance use. Primary care physician: Dr. 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
[2021-10-14 11:14] LABS: Alanine Aminotransferase 20 U/L (4-35); Albumin Level 4.1 g/dL (3.5-5.1); Alkaline Phosphatase 98 U/L (38-126); Anion Gap 7 mmol/L (8-16); Aspartate Amino Transferase 27 U/L (14-36); Bilirubin,Total 0.5 mg/dL (0.2-1.3); Blood Urea Nitrogen 11 mg/dL (7-17); Calcium 8.9 mg/dL (8.4-10.2); Carbon Dioxide 25 mmol/L (22-30); Chloride 105 mmol/L (98-107); Estimated CRCL calculation 94 ml/min; Estimated Glomerular Filt Rate > 60; Glucose 103 mg/dL (65-110); Lipase 34 U/L (23-300); Potassium 4.2 mmol/L (3.4-5.0); Sodium 137 mmol/L (137-145)
[2021-10-14 11:15] LABS: D Dimer 0.69 ug/mL (<0.48)
[2021-10-14 11:25] LABS: Troponin I < 0.012 ng/mL (0.000-0.034)
--- NOTE | 2021-10-14 11:26 | PC.NURSE ---
assumed care of pt. Pt resting comfortably on stretcher, no requests at this time
[2021-10-14 13:31] LABS: Troponin I < 0.012 ng/mL (0.000-0.034)
== END 2021-10-14 17:36 | disposition home or self-care (01) ==
PROVIDERS: Emergency Provider Emergency Medicine; PCP Family Medicine
DX: R07.89 Other chest pain (principal); K21.9 Gastro-esophageal reflux disease without esophagitis; E03.9 Hypothyroidism, unspecified; K58.9 Irritable bowel syndrome, unspecified; E66.01 Morbid (severe) obesity due to excess calories; Z68.42 Body mass index [BMI] 45.0-49.9, adult; Z87.891 Personal history of nicotine dependence; R94.31 Abnormal electrocardiogram [ECG] [EKG]
CPT/HCPCS: 36415; 71046; 78580; 80053; 83690; 84484; 85025; 85380; 85610; 85730; 93005; 99284; A9270; A9540

== ENCOUNTER → 2022-01-28 12:26 | Outpatient (CLI) | payer OTHER, SELFPAY ==
--- NOTE | ~2022-01-28 | MM_ITS ---
EXAMINATION: MM screening silvia BI w chai HISTORY: Screening mammogram, family history of breast cancer in her mother and sister. TECHNIQUE: Craniocaudal and mediolateral oblique 3-D tomosynthesis images were obtained and synthetic 2-D images were generated. CAD analysis was submitted and interpreted. COMPARISON: 12/23/2019, 10/05/2017 BREAST PARENCHYMAL COMPOSITION: There are scattered areas of fibroglandular density. FINDINGS: There is no suspicious mass, calcification, or architectural distortion to suggest malignan cy in either breast. There has been no suspicious interval change. IMPRESSION: 1. No mammographic evidence of malignancy. 2. Recommend routine screening mammography in one year. BI-RADS Category 1: Negative Reviewed, dictated and finalized at location A.
== END ==
PROVIDERS: Visit Provider Obstetrics & Gynecology
DX: Z12.31 Encounter for screening mammogram for malignant neoplasm of breast (principal)
CPT/HCPCS: 77063; 77067

== ENCOUNTER 2022-07-27 11:35 | Emergency (ER) | payer OTHER, SELFPAY ==
[2022-07-27 11:51] VITALS: BP 149/75; PULSE 71; RESP 16; TEMP 36.6; O2SAT 99
[2022-07-27 11:54] VITALS: BP 149/75; PULSE 71; RESP 16; TEMP 36.6; O2SAT 99
--- NOTE | 2022-07-27 12:17 | ED.URI ---
HPI - URI/Sore Throat General Chief Complaint: Upper Respiratory Infection Stated Complaint: sore throat Time Seen by Provider: 07/27/22 12:17 Source: patient and RN notes reviewed Mode of arrival: ambulatory Limitations: no limitations History of Present Illness HPI Narrative: 62-year-old female presents to the [facility] with complaints of irritated throat when coughing, intermittent laryngitis, sinus congestion for 4 days Denies fevers, chest pain, abdominal pain. No nausea vomiting or diarrhea. Has only taken Mucinex for her symptoms. Patient appears nontoxic. Denies respiratory heart issues Related Data Home Medications Medication Instructions Recorded Confirmed dicyclomine 20 mg tablet 20 mg PO QID 11/13/19 01/17/22 Allergies Allergy/AdvReac Type Severity Reaction Status Date / Time Iodinated Contrast Media Allergy Intermediate Hives, RED Verified 07/27/22 11:51 FACE ciprofloxacin Allergy Mild Rash Verified 07/27/22 11:51 codeine Allergy Unknown Nausea Verified 07/27/22 11:51 Contrast Media Allergy Intermediate Hives / Uncoded 07/27/22 11:51 Red Face Review of Systems Review of Systems: All systems reviewed & are unremarkable except as noted in HPI and below Constitutional: Constitutional: Reports no additional constitutional complaints, Denies chills and Denies fever(s) Eyes: Eyes: Reports no additional eye complaints ENT: Reports as per HPI and Reports nasal congestion Cardiovascular: Cardiovascular: Reports no additional cardiovascular complaints Respiratory: Respiratory: Reports no additional respiratory complaints and Reports cough Gastrointestinal: Gastrointestinal: Reports no additional gastrointestinal complaints Musculoskeletal: Musculoskeletal: Reports no additional musculoskeletal complaints Integumentary/Breasts: Skin/Breast: Reports system reviewed and no additional complaints, except as docu Neurologic: Reports system reviewed and no additional complaints, except as documented Psychiatric: Psychiatric: Reports no additional psychiatric complaints Allergic/Immunologic: Allergic/Immunologic: Reports no additional allergic/immunologic complaints [facility] Past Medical History Medical History Adrenal adenoma BMI 45.0-49.9, adult COVID-19 vaccine series completed Diverticulosis of large intestine without hemorrhage With history of diverticulitis 2016 GERD (gastroesophageal reflux disease) Hepatic steatosis Hypothyroidism Irritable bowel disease Irritable bowel syndrome (IBS) Morbid (severe) obesity due to excess calories Obesity Surgical History Surgical History H/O hysterectomy for benign disease History of History of unilateral oophorectomy History of ventral hernia repair Hx of cholecystectomy x2 Hx of tonsillectomy Family History Family History Sibling Hypertension Father , at age 79 Hypertension Abdominal aortic aneurysm Mother , at age 82 Hypertension Breast cancer, Onset Age: 52 Social History Social History Social History: She has been for 27 years. She has 2 children son who is 38 and daughter 34. 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 She is a former smoker. She does not drink alcohol. She denies illicit substance use. Primary care physician: Dr. 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
== END 2022-07-27 12:33 | disposition home or self-care (01) ==
PROVIDERS: Emergency Provider Nurse Practitioner; PCP Family Medicine
DX: J30.9 Allergic rhinitis, unspecified (principal); R09.82 Postnasal drip; Z87.891 Personal history of nicotine dependence; K21.9 Gastro-esophageal reflux disease without esophagitis; E03.9 Hypothyroidism, unspecified; K58.9 Irritable bowel syndrome, unspecified; E66.9 Obesity, unspecified; Z68.42 Body mass index [BMI] 45.0-49.9, adult; K76.0 Fatty (change of) liver, not elsewhere classified
CPT/HCPCS: 99211; G0463

== ENCOUNTER 2022-11-19 13:43 | Emergency (ER) | payer OTHER, SELFPAY ==
[2022-11-19] VITALS (8 sets, daily range): BP systolic 164; BP diastolic 77; PULSE 53–78; RESP 12–18; TEMP 36.2; O2SAT 94–98
--- NOTE | ~2022-11-19 | CT_ITS ---
EXAMINATION: CT abdomen pelvis wo con DATE: 11/19/2022 15:35 INDICATION: Left lower quadrant abdominal pain. Nausea. TECHNIQUE: Computed tomography (CT) of the abdomen and pelvis was performed without intravenous contr ast. Automated exposure control and iterative reconstruction technique were employed. The dose-length product was 1527.54 mGy-cm. COMPARISON: CT abdomen and pelvis 05/02/2021 FINDINGS: The visualized portions of the lung bases demonstrate mild atelectasis. No pleural effusion . The heart size is normal. No pericardial effusion. There are coronary artery calcifications. There is a small sliding hiatal hernia. The liver and spleen are normal. There are changes of cholecystecto my. The pancreas is normal. There are masses in the adrenal glands measuring low attenuation measurin g up to 2.5 cm on the right, consistent with adenomas. The kidneys are normal. There is no urolithias is. There are scattered diverticula in the colon. There is wall thickening of sigmoid colon with ludy cent mild fat stranding. There are no dilated loops of bowel. The appendix is normal. There is an inf raumbilical ventral hernia containing nonobstructed small bowel. There is an infraumbilical ventral h ernia containing fat. There are no pathologically enlarged lymph nodes. There is no free intraperiton eal fluid. There is severe lumbar spondylosis. IMPRESSION: 1. Mild sigmoid diverticulitis. No perforation or abscess. 2. Small sliding hiatal hernia. 3. Infraumbilical ventral hernias, one of which contains nonobstructed small bowel. Reviewed, dictated and finalized at location A. DDLE BUG OPERATOR IMPRESSION: 1. Mild sigmoid diverticulitis. No perforation or abscess. 2. Small sliding hiatal hernia. 3. Infraumbilical ventral hernias, one of which contains nonobstructed small erin wel.
[2022-11-19 13:59] LABS: Basophils Absolute Auto 0.1 K/mm3 (0.0-0.1); Basophils Percent Auto 0.8 % (0.2-1.2); Eosinophils Absolute Auto 0.1 K/mm3 (0-0.3); Eosinophils Percent Auto 2.1 % (0-4.4); Hematocrit 38.9 % (37.0-47.0); Hemoglobin 12.2 g/dL (12.0-15.0); Immature Granulocyte Absolute 0.01 K/mm3 (0.00-0.031); Immature Granulocyte Percent A 0.2 % (0-0.5); Lymphocytes Absolute Auto 1.88 K/mm3 (0.9-3.2); Lymphocytes Percent Auto 28.6 % (18.3-44.2); Mean Corpuscular HGB Conc 31.4 g/dl (32-36); Mean Corpuscular Hemoglobin 27.5 pg (26-34); Mean Corpuscular Volume 87.8 fl (80-100); Mean Platelet Volume 8.8 fl (7.4-10.4); Monocytes Absolute Auto 0.4 K/mm3 (0.1-0.6); Monocytes Percent Auto 5.3 % (2.6-8.5); Neutrophils Absolute Auto 4.2 K/mm3 (1.3-6.7); Platelet Count Result 331 k/mm3 (150-375); Red Blood Count 4.43 M/mm3 (4.2-5.4); White Blood Count 6.6 K/mm3 (4.5-10.0)
[2022-11-19 14:09] LABS: Appearance Urine Clear (Clear); Bilirubin Urine Negative (Negative); Blood Urine 1+ (Negative); Color Urine Yellow (Yellow); Glucose Urine UA Negative (Negative); Ketones Urine Negative (Negative); Leukocyte Esterase Ur Negative LEU/UL (Negative); Nitrate Urine Negative (Negative); Protein Urine Negative (Negative); Specific Grav Ur 1.015 (1.001-1.035); Urobilinogen Urine 0.2 mg/dL (<2.0); pH Urine 6.5 (5.0-9.0)
[2022-11-19 14:09] LABS: Alanine Aminotransferase 18 U/L (6-35); Albumin Level 4.3 g/dL (3.5-5.1); Alkaline Phosphatase 130 U/L (38-126); Anion Gap 5 mmol/L (8-16); Aspartate Amino Transferase 23 U/L (14-36); Bilirubin,Total 0.4 mg/dL (0.2-1.3); Blood Urea Nitrogen 8 mg/dL (7-17); Calcium 8.7 mg/dL (8.4-10.2); Carbon Dioxide 28 mmol/L (22-30); Chloride 104 mmol/L (98-107); Estimated CRCL calculation 91 ml/min; Estimated Glomerular Filt Rate > 60; Glucose 98 mg/dL (65-110); Lipase 43 U/L (23-300); Potassium 3.9 mmol/L (3.4-5.0); Sodium 137 mmol/L (137-145)
[2022-11-19 14:13] LABS: Bacteria Urine Trace /hpf; Mucus Urine Rare /lpf; Squamous Epithelial Cell Urine Rare /hpf (Few); WBC Urine 0-3 /hpf
[2022-11-19 14:21] LABS: Add Urine Microscopic? YES
--- NOTE | 2022-11-19 15:21 | ED.ABDPAIN ---
HPI - Abdominal Pain General Chief Complaint: Abdominal Pain Stated Complaint: LLQ pain Time Seen by Provider: 11/19/22 15:20 Source: patient Mode of arrival: ambulatory Limitations: no limitations History of Present Illness HPI narrative: 62 years old white female presents with left lower quadrant pain that started few hours prior to arrival to the emergency room associated with nausea. History of diverticulitis. Patient is allergic to Cipro, and Levaquin which can cause rash. Patient also cannot take Flagyl because causing severe constipation. She denies any fever, chills, vomiting, diarrhea or constipation. Patient denies aggravating or relieving factors. Had similar symptoms in the past secondary to diverticulitis. Related Data Home Medications Medication Instructions Recorded Confirmed dicyclomine 20 mg tablet 20 mg PO QID 11/13/19 01/17/22 Allergies Allergy/AdvReac Type Severity Reaction Status Date / Time Iodinated Contrast Media Allergy Intermediate Hives, RED Verified 11/19/22 15:34 FACE ciprofloxacin Allergy Mild Rash Verified 11/19/22 15:34 codeine Allergy Unknown Nausea Verified 11/19/22 15:34 Contrast Media Allergy Intermediate Hives / Uncoded 11/19/22 15:34 Red Face Review of Systems Review of Systems: All systems reviewed & are unremarkable except as noted in HPI and below PMFSH Past Medical History Medical History Adrenal adenoma BMI 45.0-49.9, adult COVID-19 vaccine series completed Diverticulosis of large intestine without hemorrhage With history of diverticulitis 2016 GERD (gastroesophageal reflux disease) Hepatic steatosis Hypothyroidism Irritable bowel disease Irritable bowel syndrome (IBS) Morbid (severe) obesity due to excess calories Obesity Surgical History Surgical History H/O hysterectomy for benign disease History of History of unilateral oophorectomy History of ventral hernia repair Hx of cholecystectomy x2 Hx of tonsillectomy Family History Family History Sibling Hypertension Father , at age 79 Hypertension Abdominal aortic aneurysm Mother , at age 82 Hypertension Breast cancer, Onset Age: 52 Social History Social History Social History: She has been for 27 years. She has 2 children son who is 38 and daughter 34. 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 She is a former smoker. She does not drink alcohol. She denies illicit substance use. Primary care physician: Dr. 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 Musculoskeletal: Normal range of motion, nontender back Neurologic: Alert and oriented ?3, ANIMAL RESEARCHER is normal as tested, no gross motor deficit
--- NOTE | 2022-11-19 15:32 | PC.NURSE ---
Patient off unit to CT
[2022-11-19] MEDS: fentaNYL CITRATE INJ (*CRX) 100 MCG/2 ML VIAL 25 MCG IV PUSH (15:39)
[2022-11-19] MEDS: ONDANSETRON INJ 4 MG/2 ML VIAL IV PUSH (15:39)
[2022-11-19] MEDS: SODIUM CHLORIDE 0.9% IV 1,000 ML 999 ML IV CONT (15:42)
== END 2022-11-19 17:40 | disposition home or self-care (01) ==
PROVIDERS: Emergency Provider Emergency Medicine; PCP Family Medicine
DX: K57.32 Diverticulitis of large intestine without perforation or abscess without bleeding (principal); E03.9 Hypothyroidism, unspecified; Z87.891 Personal history of nicotine dependence
CPT/HCPCS: 36415; 74176; 80053; 81001; 83690; 85025; 96361; 96374; 96375; 99284; J2405; J3010; J7030

== ENCOUNTER → 2023-11-13 07:59 | Outpatient (CLI) | payer OTHER, SELFPAY ==
--- NOTE | ~2023-11-13 | CT_ITS ---
Non-contrast CT scan of the Abdomen and Pelvis Clinical indication: Abdominal discomfort, adrenal adenoma Technique: 2.5 mm axial scans were obtained through the abdomen and pelvis without intravenous or or al contrast. Dose reduction technique was used on this scan by utilizing automated exposure control a nd iterative reconstruction technique. The dose-length product (DLP) was 1044.50 mGy-cm. COMPARISON: 11/19/2022 Findings: Images through the lung bases reveal no abnormalities. There is no evidence of renal or ureteral calculi. The kidneys and the ureters are nondilated. The liver, spleen, and pancreas appear normal. Bilateral low-density adrenal nodules are unchanged, c onsistent with bilateral adrenal adenomas. Cholecystectomy clips are present. There are atherosclerot ic calcifications of the aorta. There is no evidence of bowel obstruction. There are prominent ventral hernia just left of midline co ntaining several small bowel loops. No bowel obstruction. There is wall thickening and minimal inflam matory change at the proximal sigmoid colon with underlying diverticular, most compatible with mild a cute diverticulitis. No abscess or free air. Images through the pelvis were performed. There is no evidence of ascites or lymphadenopathy. Urinary bladder unremarkable. No adnexal mass seen. No ascites. Impression: Mild acute diverticulitis of the sigmoid colon. No abscess or free air. Stable ventral hernia containing small bowel loops. No bowel obstruction. Stable bilateral adrenal adenomas. Reviewed, dictated and finalized at [facility]. S MAINTAINER Impression: Mild acute diverticulitis of the sigmoid colon. No abscess or free air. Stable ventral hernia containing small bowel loops. No bowel obstruction. Stable bilateral adrenal adenomas.
== END ==
PROVIDERS: PCP Nurse Practitioner Family; Visit Provider Nurse Practitioner Family
DX: Z87.19 Personal history of other diseases of the digestive system (principal); K46.9 Unspecified abdominal hernia without obstruction or gangrene; K57.32 Diverticulitis of large intestine without perforation or abscess without bleeding; K43.9 Ventral hernia without obstruction or gangrene; D35.01 Benign neoplasm of right adrenal gland; D35.02 Benign neoplasm of left adrenal gland
CPT/HCPCS: 74176

== ENCOUNTER 2023-11-15 09:47 | Emergency (ER) | payer OTHER, SELFPAY ==
[2023-11-15 09:47] VITALS: BP 177/80; PULSE 85; RESP 16; TEMP 36.6; O2SAT 96
--- NOTE | 2023-11-15 10:08 | ED.ABDPAIN ---
HPI - Abdominal Pain General Chief Complaint: Abdominal Pain Stated Complaint: diverticulitis Time Seen by Provider: 11/15/23 09:52 Source: patient Mode of arrival: ambulatory Limitations: no limitations History of Present Illness HPI narrative: Vicky is a 63-year-old female patient presenting to the clinic today with complaints of left lower abdominal pain x1 week. Rates her pain 7/10 currently. States it is a spasming/stabbing pain to the left lower quadrant. Had a CT scan done on the 13 of November but has not gotten the results back from that yet. History of diverticulitis. She denies any urinary symptoms. No fever or chills. Related Data Allergies Allergy/AdvReac Type Severity Reaction Status Date / Time Iodinated Contrast Media Allergy Intermediate Hives, RED Verified 11/15/23 10:07 FACE ciprofloxacin Allergy Mild Rash Verified 11/15/23 10:07 codeine AdvReac Unknown Nausea Verified 11/15/23 10:16 Review of Systems Review of Systems: Pertinent positives per HPI. Patient denies any fever, chills, rash, headache, visual changes, dizziness, cough, runny nose, sore throat, shortness of breath, chest pain, palpitations, vomiting, diarrhea, constipation,or any urinary issues. [facility] Past Medical History Medical History Adrenal adenoma BMI 45.0-49.9, adult COVID-19 vaccine series completed Diverticulosis of large intestine without hemorrhage With history of diverticulitis 2016 GERD (gastroesophageal reflux disease) Hepatic steatosis Hypothyroidism Irritable bowel disease Irritable bowel syndrome (IBS) Morbid (severe) obesity due to excess calories Obesity Surgical History Surgical History H/O hysterectomy for benign disease History of History of unilateral oophorectomy History of ventral hernia repair Hx of cholecystectomy x2 Hx of tonsillectomy Family History Family History Sibling Hypertension Thyroid activity decreased Father , at age 79 Hypertension Abdominal aortic aneurysm Mother , at age 82 Hypertension Breast cancer, Onset Age: 52 Thyroid activity decreased Sibling , Covid-19 covid-19 2 siblings. Social History Social History Social History: She has been for 27 years. She has 2 children son who is 38 and daughter 34. 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 She is a former smoker. She does not drink alcohol. She denies illicit substance use. Primary care physician: Dr. Ron Malik code status: Full code surrogate decision maker: Smoking status: Former smoker Tobacco type: cigarettes Second hand tobacco smoke exposure: Yes Alcohol intake: never Substance use: never Substance use type: does not use Do You Feel Safe in your Home?: Yes Lack of Transportation: No Lack of Food: Never True Current Housing: I Have Housing Concerned About Future Housing: No Difficulty Paying Gas/Electric Bills: No Difficulty Paying for Meds: No Currently Unemployed: No Education: High School Diploma/GED Difficulty w/ Childcare or Family Care: No Living arrangements: with family Occupation/Education: occupation 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 There is no relevant family history pertinent to the patient complaint. Exam Narrative: General: Well-developed, morbidly obese, in no apparent distress. Head: Normocephalic, atraumatic. Cardio: Regul
[2023-11-15 10:20] VITALS: BP 149/67; PULSE 69; RESP 16; O2SAT 95
[2023-11-15] MEDS: ONDANSETRON INJ 4 MG/2 ML VIAL IV PUSH (10:25)
[2023-11-15 10:26] LABS: Basophils Absolute Auto 0.1 K/mm3 (0.0-0.1); Basophils Percent Auto 0.7 % (0.2-1.2); Eosinophils Absolute Auto 0.3 K/mm3 (0-0.3); Eosinophils Percent Auto 3.5 % (0-4.4); Hematocrit 38.7 % (37.0-47.0); Hemoglobin 11.9 g/dL (12.0-15.0); Immature Granulocyte Absolute 0.02 K/mm3 (0.00-0.031); Immature Granulocyte Percent A 0.3 % (0-0.5); Lymphocytes Absolute Auto 1.45 K/mm3 (0.9-3.2); Lymphocytes Percent Auto 18.9 % (18.3-44.2); Mean Corpuscular HGB Conc 30.7 g/dl (32-36); Mean Corpuscular Hemoglobin 27.3 pg (26-34); Mean Corpuscular Volume 88.8 fl (80-100); Mean Platelet Volume 9.1 fl (7.4-10.4); Monocytes Absolute Auto 0.5 K/mm3 (0.1-0.6); Monocytes Percent Auto 5.9 % (2.6-8.5); Neutrophils Absolute Auto 5.4 K/mm3 (1.3-6.7); Neutrophils Percent Auto 70.7 % (45.5-73.1); Platelet Count Result 377 k/mm3 (150-375); Red Blood Count 4.36 M/mm3 (4.2-5.4); Red Cell Distribution Width 16.3 % (11.5-14.5); White Blood Count 7.7 K/mm3 (4.5-10.0)
[2023-11-15] MEDS: fentaNYL CITRATE INJ (*CRX) 100 MCG/2 ML VIAL 50 MCG IV PUSH (10:26)
[2023-11-15 10:38] LABS: Alanine Aminotransferase 14 U/L (6-35); Alkaline Phosphatase 126 U/L (38-126); Anion Gap 4 mmol/L (8-16); Aspartate Amino Transferase 20 U/L (14-36); Bilirubin,Total 0.6 mg/dL (0.2-1.3); Blood Urea Nitrogen 10 mg/dL (7-17); Carbon Dioxide 30 mmol/L (22-30); Chloride 106 mmol/L (98-107); Estimated CRCL calculation 89 ml/min; Estimated Glomerular Filt Rate > 60; Glucose 114 mg/dL (65-110); Lipase 42 U/L (23-300); Potassium 4.1 mmol/L (3.4-5.0); Sodium 140 mmol/L (137-145)
[2023-11-15 10:57] VITALS: BP 162/79; PULSE 70; RESP 16; O2SAT 94
[2023-11-15 11:14] LABS: Appearance Urine Cloudy (Clear); Bacteria Urine None Seen /hpf; Bilirubin Urine Negative (Negative); Blood Urine 2+ (Negative); Color Urine Yellow (Yellow); Glucose Urine UA Negative (Negative); Ketones Urine Negative (Negative); Leukocyte Esterase Ur 3+ LEU/UL (Negative); Nitrate Urine Negative (Negative); Non Pathogenic Casts 0-2; Protein Urine Negative (Negative); RBC Urine 51-100 /hpf (0-2); Specific Grav Ur 1.012 (1.001-1.035); Squamous Epithelial Cell Urine Few /hpf (Few); Urobilinogen Urine 0.2 mg/dL (<2.0); WBC Urine >100 /hpf; pH Urine 6.5 (5.0-9.0)
[2023-11-15 11:17] LABS: Add Urine Microscopic? YES
[2023-11-15 11:48] VITALS: BP 139/70; PULSE 64; RESP 13; O2SAT 94
== END 2023-11-15 11:49 | disposition home or self-care (01) ==
PROVIDERS: Emergency Medicine; Emergency Provider Nurse Practitioner Family; PCP Nurse Practitioner Family
DX: K57.32 Diverticulitis of large intestine without perforation or abscess without bleeding (principal); N30.01 Acute cystitis with hematuria; E03.9 Hypothyroidism, unspecified; E66.01 Morbid (severe) obesity due to excess calories; Z68.42 Body mass index [BMI] 45.0-49.9, adult; K21.9 Gastro-esophageal reflux disease without esophagitis; K58.9 Irritable bowel syndrome, unspecified; Z87.891 Personal history of nicotine dependence; Z90.710 Acquired absence of both cervix and uterus; Z90.49 Acquired absence of other specified parts of digestive tract
CPT/HCPCS: 36415; 80053; 81001; 83690; 85025; 87086; 87088; 96374; 96375; 99284; J2405; J3010

== ENCOUNTER 2023-12-01 16:05 | Inpatient (IN) | payer OTHER, SELFPAY ==
--- NOTE | ~2023-12-01 | CT_ITS ---
EXAMINATION: CT abdomen pelvis wo con DATE: 12/01/2023 21:09 INDICATION: LEFT LOWER QUADRANT PAIN TECHNIQUE: Computed tomography (CT) of the abdomen and pelvis was performed without intravenous contr ast. Automated exposure control and iterative reconstruction technique were employed. The dose-length product was 1622.90 mGy-cm. COMPARISON: 11/13/2023. FINDINGS: Lower thorax: Unremarkable Liver: Normal. Biliary/Gallbladder: Gallbladder is absent. No bile duct dilation. Pancreas: Fatty infiltration. Spleen: Normal. Adrenals:Bilateral adenomas. Kidneys: No suspicious mass, obstructing stone, or hydronephrosis. GI tract: Segmental severe sigmoid wall thickening with surrounding inflammatory change. No small or large bowel dilation. Normal appendix. Mesentery/Peritoneum: No ascites, mass, or free air. Retroperitoneum: No mass. Pelvis: Marked urinary bladder wall thickening and inflammatory change of the superior aspect of the bladder. Loss of the normal fat plane between the cecum and bladder. Absent uterus. Soft Tissues: Large uncomplicated fat and bowel containing and smaller fat-containing infraumbilical intra-abdominal wall hernias. Bones: No acute osseous finding. Grade 1 anterolisthesis at L4-5. Grade 1 retrolisthesis at L5-S1. S evere bilateral neural foraminal narrowing at L5-S1 and on the right at L3-4 and L4-5. IMPRESSION: Severe, complicated diverticulitis, considerably worse than in the prior study. Note, other forms of colitis not excluded. Possible colovesicular fistula. Reviewed, dictated and finalized at location K. ADVOCATE
[2023-12-01 16:42] VITALS: BP 157/64; PULSE 98; RESP 16; TEMP 37.1; O2SAT 96
[2023-12-01 20:42] VITALS: BP 169/82; PULSE 85; RESP 18; O2SAT 96
--- NOTE | 2023-12-01 20:49 | ED.ABDPAIN ---
HPI - Abdominal Pain General Chief Complaint: Abdominal Pain Stated Complaint: abd pain, diverticulitis Time Seen by Provider: 12/01/23 20:46 History of Present Illness HPI narrative: 63 YEARS OLD WHITE FEMALE CAME TO THE ED BY PRIVATE CAR FROM HOME COMPLAINING OF ABDOMINAL PAIN WHICH STARTED ON OCTOBER 30, 2023, MAINLY LEFT LOWER QUADRANT, HAD CT SCAN ON NOVEMBER 15, 2023 SHOWED DIVERTICULITIS, AND ALSO HAD URINARY TRACT INFECTION AT THAT TIME STARTED ON AUGMENTIN FOR 7 DAYS, NO IMPROVEMENT, WAS SEEN BY HER FAMILY PHYSICIAN RECENTLY AND REPEATED URINALYSIS ON THE SHOWED URINARY TRACT INFECTION, PATIENT STARTED ON BACTRIM FOR 10 DAYS. PAIN IS STILL THERE DULL ACHING, RADIATING TO LOWER BACK, NO AGGRAVATING OR RELIEVING FACTORS. HISTORY OF HYPOTHYROIDISM GERD DEPRESSION SECTION X2, HYSTERECTOMY CHOLECYSTECTOMY. Related Data Allergies Allergy/AdvReac Type Severity Reaction Status Date / Time Iodinated Contrast Media Allergy Intermediate Hives, RED Verified 12/01/23 20:44 FACE ciprofloxacin Allergy Mild Rash Verified 12/01/23 20:44 codeine AdvReac Unknown Nausea Verified 12/01/23 20:44 Review of Systems Review of Systems: All systems reviewed & are unremarkable except as noted in HPI and below PMFSH Past Medical History Medical History Adrenal adenoma BMI 45.0-49.9, adult COVID-19 vaccine series completed Diverticulosis of large intestine without hemorrhage With history of diverticulitis 2017 GERD (gastroesophageal reflux disease) Hepatic steatosis Hypothyroidism Irritable bowel disease Irritable bowel syndrome (IBS) Morbid (severe) obesity due to excess calories Obesity Surgical History Surgical History H/O hysterectomy for benign disease History of History of unilateral oophorectomy History of ventral hernia repair Hx of cholecystectomy x2 Hx of tonsillectomy Family History Family History Sibling Hypertension Thyroid activity decreased Father , at age 79 Hypertension Abdominal aortic aneurysm Mother , at age 82 Hypertension Breast cancer, Onset Age: 52 Thyroid activity decreased Sibling , Covid-19 covid-19 2 siblings. Social History Social History Social History: She has been for 27 years. She has 2 children son who is 38 and daughter 34. 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 She is a former smoker. She does not drink alcohol. She denies illicit substance use. Primary care physician: Dr. Ron Malik code status: Full code surrogate decision maker: Smoking status: Former smoker Tobacco type: cigarettes Second hand tobacco smoke exposure: Yes Alcohol intake: never Substance use: never Substance use type: does not use Do You Feel Safe in your Home?: Yes Lack of Transportation: No Lack of Food: Never True Current Housing: I Have Housing Concerned About Future Housing: No Difficulty Paying Gas/Electric Bills: No Difficulty Paying for Meds: No Currently Unemployed: No Education: High School Diploma/GED Difficulty w/ Childcare or Family Care: No Living arrangements: with family Occupation/Education: occupation 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
[2023-12-01] MEDS: ONDANSETRON INJ 4 MG/2 ML VIAL IV PUSH (21:01)
[2023-12-01] MEDS: SODIUM CHLORIDE 0.9% IV 1,000 ML 999 ML IV CONT (21:01)
[2023-12-01] MEDS: MORPHINE SULFATE (*CRX) 4 MG/ML INJ IV PUSH (21:01)
[2023-12-01 21:04] LABS: Basophils Absolute Auto 0.1 K/mm3 (0.0-0.1); Basophils Percent Auto 0.5 % (0.2-1.2); Eosinophils Absolute Auto 0.2 K/mm3 (0-0.3); Eosinophils Percent Auto 1.2 % (0-4.4); Hematocrit 41.6 % (37.0-47.0); Hemoglobin 12.4 g/dL (12.0-15.0); Immature Granulocyte Absolute 0.06 K/mm3 (0.00-0.031); Immature Granulocyte Percent A 0.5 % (0-0.5); Lymphocytes Absolute Auto 2.02 K/mm3 (0.9-3.2); Lymphocytes Percent Auto 15.2 % (18.3-44.2); Mean Corpuscular HGB Conc 29.8 g/dl (32-36); Mean Corpuscular Hemoglobin 26.6 pg (26-34); Mean Corpuscular Volume 89.3 fl (80-100); Mean Platelet Volume 8.9 fl (7.4-10.4); Monocytes Absolute Auto 0.7 K/mm3 (0.1-0.6); Monocytes Percent Auto 4.9 % (2.6-8.5); Neutrophils Absolute Auto 10.4 K/mm3 (1.3-6.7); Neutrophils Percent Auto 77.7 % (45.5-73.1); Platelet Count Result 499 k/mm3 (150-375); Red Blood Count 4.66 M/mm3 (4.2-5.4); Red Cell Distribution Width 16.8 % (11.5-14.5); White Blood Count 13.3 K/mm3 (4.5-10.0)
[2023-12-01 21:08] LABS: Appearance Urine Cloudy (Clear); Bacteria Urine 1+ /hpf; Bilirubin Urine Negative (Negative); Blood Urine 2+ (Negative); Color Urine Yellow (Yellow); Glucose Urine UA Negative (Negative); Ketones Urine Negative (Negative); Leukocyte Esterase Ur Trace LEU/UL (Negative); Nitrate Urine Negative (Negative); Protein Urine 3+ mg/dL (Negative); RBC Urine 51-100 /hpf (0-2); Specific Grav Ur 1.016 (1.001-1.035); Squamous Epithelial Cell Urine Moderate /hpf (Few); WBC Urine 21-50 /hpf; pH Urine 6.5 (5.0-9.0)
[2023-12-01 21:13] LABS: Alanine Aminotransferase 18 U/L (6-35); Albumin Level 4.2 g/dL (3.5-5.1); Alkaline Phosphatase 120 U/L (38-126); Anion Gap 10 mmol/L (8-16); Aspartate Amino Transferase 24 U/L (14-36); Bilirubin,Total 0.8 mg/dL (0.2-1.3); Blood Urea Nitrogen 11 mg/dL (7-17); Calcium 9.8 mg/dL (8.4-10.2); Carbon Dioxide 28 mmol/L (22-30); Chloride 100 mmol/L (98-107); Estimated CRCL calculation 66 ml/min; Estimated Glomerular Filt Rate 50; Glucose 121 mg/dL (65-110); Lipase 33 U/L (23-300); Potassium 4.3 mmol/L (3.4-5.0); Sodium 138 mmol/L (137-145)
[2023-12-01 21:14] LABS: Lactic Acid Reflex 1.6 mmol/L (0.7-2.0)
[2023-12-01 21:21] LABS: Add Urine Microscopic? YES
[2023-12-01 21:29] LABS: Anisocytosis 2+ (NORMAL); Hypochromasia 1+ (NORMAL); Platelet Estimate Increased (Adequate); Schistocytes None Seen (NORMAL)
[2023-12-01 22:12] VITALS: BP 152/76; PULSE 76; RESP 18; TEMP 37.4; O2SAT 95
[2023-12-01] MEDS: ACETAMINOPHEN 325 MG TABLET 650 MG PO (22:15)
[2023-12-01] MEDS: SODIUM CHLORIDE 0.9% IV 1,000 ML 150 ML IV CONT (22:16)
[2023-12-01] MEDS: metroNIDAZOLE 500 MG/ISO 100ML 500 MG/100 ML BAG 100 MG IVPB (22:39)
--- NOTE | 2023-12-01 22:41 | PM.IMHP ---
H&P: HPI History of Present Illness Date/Time: 12/01/23 22:41 Chief Complaint: Left lower quadrant pain Narrative: This is a 63-year-old female with past medical history significant for morbid obesity, recurrent diverticulitis. Patient presents to the emergency room due to left lower quadrant pain has completed 2 courses of antibiotics in the outpatient setting for diverticulitis. Patient states that has had bowel movement denies any blood in her stool no bright red blood per rectum, no melena, no hematochezia, has had poor appetite, has had chills. Preliminary workup was significant for CT of abdomen and pelvis reported as: EXAMINATION: CT abdomen pelvis wo con DATE: 12/01/2023 21:09 INDICATION: LEFT LOWER QUADRANT PAIN TECHNIQUE: Computed tomography (CT) of the abdomen and pelvis was performed without intravenous contrast. Automated exposure control and iterative reconstruction technique were employed. The dose-length product was 1622.90 mGy-cm. COMPARISON: 11/13/2023. FINDINGS: Lower thorax: Unremarkable Liver: Normal.? Biliary/Gallbladder: Gallbladder is absent. No bile duct dilation. Pancreas: Fatty infiltration. Spleen: Normal. Adrenals:Bilateral adenomas. Kidneys: No suspicious mass, obstructing stone, or hydronephrosis. GI tract: Segmental severe sigmoid wall thickening with surrounding inflammatory change. No small or large bowel dilation. Normal appendix. Mesentery/Peritoneum: No ascites, mass, or free air. Retroperitoneum: No mass. Pelvis: Marked urinary bladder wall thickening and inflammatory change of the superior aspect of the bladder. Loss of the normal fat plane between the cecum and bladder. Absent uterus. Soft Tissues: Large uncomplicated fat and bowel containing and smaller fat-containing infraumbilical intra-abdominal wall hernias. Bones:? No acute osseous finding. Grade 1 anterolisthesis at L4-5. Grade 1 retrolisthesis at L5-S1. Severe bilateral neural foraminal narrowing at L5-S1 and on the right at L3-4 and L4-5. IMPRESSION: Severe, complicated diverticulitis, considerably worse than in the prior study. Note, other forms of colitis not excluded. Possible colovesicular fistula. Review of Systems Review of Systems: Left lower quadrant pain, poor appetite Constitutional: Constitutional: Reports chills, Reports fever(s), Reports malaise and Reports poor appetite Eyes: Eyes: Denies change in vision ENT: Denies dysphagia and Denies odynophagia Cardiovascular: Cardiovascular: Denies chest pain, Denies radiating jaw, neck or arm pain, Denies palpitations and Denies dyspnea Respiratory: Respiratory: Denies cough and Denies dyspnea Gastrointestinal: Gastrointestinal: Reports abdominal pain (Left lower quadrant), Denies melena, Denies hematochezia, Denies diarrhea, Denies loose stools, Denies nausea and Denies vomiting Genitourinary: Genitourinary: Denies flank pain Musculoskeletal: Musculoskeletal: Reports myalgias Integumentary/Breasts: Skin/Breast: Denies rash Neurologic: Denies focal weakness and Denies Sensory deficit (Neuro) Psychiatric: Psychiatric: Reports no additional psychiatric complaints and Reports as per HPI Endocrine: Endocrine: Denies cold intolerance, Denies fatigue, Denies flushing, Denies heat intolerance, Denies polyphagia, Denies polydipsia and Denies palpitations Hematologic/Lymphatic: Hematologic/Lymphatic: Reports no additional hematologic/lymphatic complaints and Reports as per HPI Allergic/Immunologic: Allergic/Immunologic: Reports no additional allergic/immunologic complaints and Reports as per HPI PMFSH Past Medical History Medical History Adrenal adenoma BMI 45.0-49.9, adult COVID-19 vaccine series completed Diverticulosis of large intestine without hemorrhage With history of diverticulitis 2016 GERD (gastroesophageal reflux disease) Hepatic steatosis Hypothyroidism Irritable bowel disease Irritable erin
[2023-12-01 22:43] VITALS: TEMP 37.3
[2023-12-01] MEDS: levoFLOXacin 750 MG/D5W 150 ML 750 MG/150 ML BAG 100 MG IVPB (23:40)
[2023-12-01 23:42] VITALS: BP 161/80; PULSE 89; RESP 19; O2SAT 95
[2023-12-02] VITALS: BP 119/55; PULSE 78; RESP 20; TEMP 36.4; O2SAT 93
[2023-12-02] MEDS: HYDROmorphone HCL INJ (*CRX) 1 MG/ML SYR 0.5 MG IV PUSH (00:36)
--- NOTE | 2023-12-02 00:49 | ADMGEN ---
This patient, Vicky Hammond, was admitted to Medical Room 250-. Patient/family oriented to hospital policies and general routines including ID bracelet, bed and alarms, visiting hours, pain management, procedures, bathroom and other care routines, personal items, smoking policy, room service/diet, and visiting hours. Information on how to activate the Rapid Response Team has been discussed. Patient/Family are encouraged to report perceived risks to care and to ask questions if they do not understand what they are told or what they should do.
[2023-12-02 00:50] VITALS: BMI 48.0
[2023-12-02 04:39] VITALS: BP 112/62; PULSE 73; RESP 20; TEMP 36.6; O2SAT 94
[2023-12-02] MEDS: LEVOTHYROXINE SODIUM 150 MCG TABLET PO (06:06)
[2023-12-02] MEDS: metroNIDAZOLE 500 MG/ISO 100ML 500 MG/100 ML BAG 100 MG IVPB ×3 (06:06→22:20)
[2023-12-02] MEDS: DICYCLOMINE HCL 10 MG CAPSULE 20 MG PO ×4 (07:58→20:12)
[2023-12-02] MEDS: ONDANSETRON INJ 4 MG/2 ML VIAL IV PUSH (07:58)
[2023-12-02] MEDS: PANTOPRAZOLE 40 MG TABLET PO ×2 (07:59→20:12)
[2023-12-02] MEDS: ESCITALOPRAM OXALATE 10 MG TABLET PO (07:59)
--- NOTE | 2023-12-02 09:47 | PM.CNGS ---
Assessment and Plan Assessment and plan (1) Diverticulitis: Code(s): K57.92 - Diverticulitis of intestine, part unspecified, without perforation or abscess without bleeding Status: Acute Assessment and Plan: Patient presents with failed outpatient treatment for acute sigmoid diverticulitis twice. CT abdomen and pelvis on 11/13 showed mild sigmoid diverticulitis. Repeat CT in the ER yesterday showed worsening sigmoid diverticulitis, but no CT evidence of perforation or abscess. When I saw her this morning, she is already clinically improving. Will repeat labs today. Recommend to continue with IV antibiotics and okay to continue a clear liquid diet for now. Will switch her antibiotics to IV Zosyn and metronidazole. There is no indication for any urgent surgical intervention. We will continue to follow along with serial abdominal exams and labs. (2) Urinary tract infection: Code(s): N39.0 - Urinary tract infection, site not specified Status: Acute Assessment and Plan: Recently treated for a UTI with Bactrim through her PCP. Final urine culture showed only mixed genital farhat. She was having some dysuria and pressure when voiding, which has resolved. CT abdomen and pelvis mentioned possible colovesicular fistula. Patient denies any pneumaturia or foul-smelling discharge. She would be at risk for developing a fistula considering the length of her symptoms. (3) CRIS (acute kidney injury): Code(s): N17.9 - Acute kidney failure, unspecified Status: Acute Assessment and Plan: Mild with creatinine 1.1 on admission. Currently on IV fluids, will repeat labs. (4) Morbid (severe) obesity due to excess calories: Code(s): E66.01 - Morbid (severe) obesity due to excess calories Status: Acute Assessment and Plan: Discussed the importance of weight loss and how this can influence her diverticular disease. She has been working on weight loss at home and recently seen her PCP and went to a weight loss clinic in [place] in the fall. If the patient were to require surgery in an unfortunate event that she would get worse with conservative management/IV antibiotics, then she would likely require transfer to a tertiary care facility given her morbid obesity. (5) Irritable bowel syndrome (IBS): Qualifiers: Irritable bowel syndrome type: with constipation Qualified Code(s): K58.1 - Irritable bowel syndrome with constipation Code(s): K58.9 - Irritable bowel syndrome without diarrhea Status: Chronic (6) Fatty liver: Code(s): K76.0 - Fatty (change of) liver, not elsewhere classified Status: Acute (7) Incisional hernia without obstruction or gangrene: Code(s): K43.2 - Incisional hernia without obstruction or gangrene Status: Acute Assessment and Plan: Patient with a recurrent infraumbilical incisional hernia. CT showed fat and bowel in the infraumbilical hernia, no evidence of an obstruction. This seems to be asymptomatic for her, but she has noticed a bulge in the same area as her previous hernia repair for quite some time. This seems to be reducible on exam but it is somewhat difficult to appreciate due to her body habitus. No acute issues that require any urgent surgical intervention. Discussed with the patient that she would need to work on weight loss prior to considering having this repaired in the future. Patient is aware and has actively been trying to navigate different options for weight loss through her PCP. Plan I have discussed the patient's case and plan of care with Dr. Clark. Thank you for allowing us to see the patient in consultation and we will continue to follow along with you. History of Present Illness Consult details Consult date: 12/02/23 Reason for consult: other (Diverticulitis) Requesting physician: Any Ames MD Narrative: This is a 63-year-old morbidly obese woman with a history of IBS, GERD, and hepatic steatosis,
[2023-12-02] MEDS: SODIUM CHLORIDE 0.9% IV 1,000 ML 150 ML IV CONT ×2 (09:56→17:34)
[2023-12-02 10:38] LABS: Basophils Percent Auto 0.4 % (0.2-1.2); Eosinophils Absolute Auto 0.1 K/mm3 (0-0.3); Eosinophils Percent Auto 0.6 % (0-4.4); Hematocrit 37.6 % (37.0-47.0); Hemoglobin 11.3 g/dL (12.0-15.0); Immature Granulocyte Absolute 0.03 K/mm3 (0.00-0.031); Immature Granulocyte Percent A 0.3 % (0-0.5); Lymphocytes Absolute Auto 1.09 K/mm3 (0.9-3.2); Lymphocytes Percent Auto 11.7 % (18.3-44.2); Mean Corpuscular HGB Conc 30.1 g/dl (32-36); Mean Corpuscular Hemoglobin 27.1 pg (26-34); Mean Corpuscular Volume 90.2 fl (80-100); Mean Platelet Volume 8.9 fl (7.4-10.4); Monocytes Absolute Auto 0.5 K/mm3 (0.1-0.6); Monocytes Percent Auto 5.4 % (2.6-8.5); Neutrophils Absolute Auto 7.6 K/mm3 (1.3-6.7); Neutrophils Percent Auto 81.6 % (45.5-73.1); Platelet Count Result 381 k/mm3 (150-375); Red Blood Count 4.17 M/mm3 (4.2-5.4); Red Cell Distribution Width 16.5 % (11.5-14.5); White Blood Count 9.3 K/mm3 (4.5-10.0)
[2023-12-02 10:51] LABS: Anion Gap 5 mmol/L (8-16); Blood Urea Nitrogen 11 mg/dL (7-17); Carbon Dioxide 28 mmol/L (22-30); Chloride 107 mmol/L (98-107); Estimated CRCL calculation 79 ml/min; Estimated Glomerular Filt Rate > 60; Glucose 119 mg/dL (65-110); Potassium 4.7 mmol/L (3.4-5.0); Sodium 140 mmol/L (137-145)
[2023-12-02] MEDS: PIPERACILLN/TAZ 3.375GM/NS50ML 3.375 GM/50 ML BAG IVPB ×3 (12:16→23:52)
--- NOTE | 2023-12-02 14:08 | PM.IMPN ---
Progress Note: A&P Assessment and Plan (1) Diverticulitis: Code(s): K57.92 - Diverticulitis of intestine, part unspecified, without perforation or abscess without bleeding Status: Acute Assessment and Plan: Patient with ongoing Hx of diverticulitis. CT abdomen pelvis showing severe complicated diverticulitis. Started on levofloxacin and Flagyl General surgery consult and surgery is not needed at this time. Clear liquid diet. Analgesics as needed. Once pain is better managed will advance diet as tolerated. Weight loss discussed with patient. (2) LLQ abdominal pain: Code(s): R10.32 - Left lower quadrant pain Status: Acute Assessment and Plan: Likely secondary to 1. Supportive care (3) Urinary tract infection: Code(s): N39.0 - Urinary tract infection, site not specified Status: Acute Assessment and Plan: UA suspicious for infection with trace leukocyte esterase and 21-50 wbc's and 1+ bacteria On levofloxacin Await cultures (4) CRIS (acute kidney injury): Code(s): N17.9 - Acute kidney failure, unspecified Status: Acute Assessment and Plan: Likely to be pre renal IV fluids Resolved. (5) Migraine: Code(s): G43.909 - Migraine, unspecified, not intractable, without status migrainosus Status: Acute Assessment and Plan: Tylenol p.r.n. (6) Morbid (severe) obesity due to excess calories: Code(s): E66.01 - Morbid (severe) obesity due to excess calories Status: Acute Assessment and Plan: Lifestyle and diet modifications (7) GERD (gastroesophageal reflux disease): Code(s): K21.9 - Gastro-esophageal reflux disease without esophagitis Status: Chronic Assessment and Plan: PPI (8) Fatty liver: Code(s): K76.0 - Fatty (change of) liver, not elsewhere classified Status: Acute Assessment and Plan: Follow-up in outpatient setting Subjective Date/time seen: 12/02/23 14:08 Interval history: Patient's pain is much better today. Patient has had intermittent issues with diverticulitis for several years now. She denies any change in bowel habits as well as melena hematochezia. She has left lower quadrant tenderness but denies nausea vomiting. Pain much better controlled. Diet, exercise and weight loss discussed with the patient. Will continue to monitor. Advanced diet once patient's pain is better controlled. Exam Narrative: GENERAL: Comfortable, no acute distress HENMT: moist mucous membranes EYES: EOM intact b/l NECK: no lymphadenopathy RESPIRATORY: clear to auscultation CARDIO: RRR GI: soft, LLQ tenderness, bowel sounds present SKIN: no rashes EXTREMITIES: no edema, redness or tenderness Objective Data Vital Signs Vital Signs: Vital Signs - 24 hr 12/01/23 16:42 12/01/23 20:42 12/01/23 22:12 Temperature 98.7 F 99.3 F Pulse Rate 98 85 76 Respiratory Rate 16 18 18 Blood Pressure 157/64 H 169/82 H 152/76 H Pulse Oximetry 96 96 95 Oxygen Delivery Room Air 12/01/23 22:43 12/01/23 23:42 12/02/23 01:15 Temperature 99.1 F Pulse Rate 89 Respiratory Rate 19 Blood Pressure 161/80 H Pulse Oximetry 95 Oxygen Delivery Room Air 12/02/23 00:00 12/02/23 04:39 12/02/23 08:00 Temperature 97.5 F L 97.8 F Pulse Rate 78 73 Respiratory Rate 20 20 Blood Pressure 119/55 L 112/62 Pulse Oximetry 93 94 Oxygen Delivery Room Air Intake/Output Intake/Output: Intake & Output 11/29/23 11/30/23 12/01/23 12/02/23 23:59 23:59 23:59 23:59 Intake Total 1100 1945 Output Total 650 Balance 1100 1295 Meds/Results Medications: Active Medications Generic Name Dose Route Start Last Admin Trade Name Freq PRN Reason Stop Dose Admin Acetaminophen 650 mg 12/01/23 21:54 12/01/23 22:15 Acetaminophen 325 Mg Tablet PO 650 mg Q4H
[2023-12-02 14:31] VITALS: BP 122/61; PULSE 62; RESP 18; TEMP 36.5; O2SAT 97
[2023-12-02 19:39] VITALS: BP 126/67; PULSE 58; RESP 18; TEMP 36.9; O2SAT 97
[2023-12-03] MEDS: SODIUM CHLORIDE 0.9% IV 1,000 ML 150 ML IV CONT (03:26)
[2023-12-03] MEDS: LEVOTHYROXINE SODIUM 150 MCG TABLET PO (06:08)
[2023-12-03] MEDS: PIPERACILLN/TAZ 3.375GM/NS50ML 3.375 GM/50 ML BAG IVPB ×4 (06:09→23:54)
[2023-12-03 06:25] LABS: Hematocrit 34.4 % (37.0-47.0); Hemoglobin 10.1 g/dL (12.0-15.0); Mean Corpuscular HGB Conc 29.4 g/dl (32-36); Mean Corpuscular Hemoglobin 27.2 pg (26-34); Mean Corpuscular Volume 92.5 fl (80-100); Mean Platelet Volume 9.2 fl (7.4-10.4); Platelet Count Result 374 k/mm3 (150-375); Red Blood Count 3.72 M/mm3 (4.2-5.4); Red Cell Distribution Width 16.6 % (11.5-14.5)
[2023-12-03 06:31] LABS: Anion Gap 5 mmol/L (8-16); Blood Urea Nitrogen 8 mg/dL (7-17); Calcium 8.5 mg/dL (8.4-10.2); Carbon Dioxide 26 mmol/L (22-30); Chloride 108 mmol/L (98-107); Estimated CRCL calculation 79 ml/min; Estimated Glomerular Filt Rate > 60; Glucose 101 mg/dL (65-110); Sodium 139 mmol/L (137-145)
[2023-12-03] MEDS: metroNIDAZOLE 500 MG/ISO 100ML 500 MG/100 ML BAG 100 MG IVPB ×3 (06:44→21:14)
[2023-12-03 06:51] VITALS: BP 116/59; PULSE 52; RESP 18; TEMP 36.8; O2SAT 97
[2023-12-03] MEDS: PANTOPRAZOLE 40 MG TABLET PO ×2 (08:16→20:16)
[2023-12-03] MEDS: ESCITALOPRAM OXALATE 10 MG TABLET PO (08:16)
[2023-12-03 08:20] VITALS: RESP 18; O2SAT 97
[2023-12-03] MEDS: DICYCLOMINE HCL 10 MG CAPSULE 20 MG PO ×4 (08:20→20:16)
--- NOTE | 2023-12-03 13:07 | PM.IMPN ---
Progress Note: A&P Assessment and Plan (1) Diverticulitis: Code(s): K57.92 - Diverticulitis of intestine, part unspecified, without perforation or abscess without bleeding Status: Acute Assessment and Plan: Patient with ongoing Hx of diverticulitis. CT abdomen pelvis showing severe complicated diverticulitis. Started on levofloxacin and Flagyl General surgery consult and surgery is not needed at this time. Diet advanced as tolerated. Analgesics as needed. Weight loss discussed with patient. (2) LLQ abdominal pain: Code(s): R10.32 - Left lower quadrant pain Status: Acute Assessment and Plan: Likely secondary to 1. Supportive care (3) Urinary tract infection: Code(s): N39.0 - Urinary tract infection, site not specified Status: Acute Assessment and Plan: UA suspicious for infection with trace leukocyte esterase and 21-50 wbc's and 1+ bacteria Urine culture normal. (4) CRIS (acute kidney injury): Code(s): N17.9 - Acute kidney failure, unspecified Status: Acute Assessment and Plan: Likely to be pre renal IV fluids Resolved. (5) Migraine: Code(s): G43.909 - Migraine, unspecified, not intractable, without status migrainosus Status: Acute Assessment and Plan: Tylenol p.r.n. (6) Morbid (severe) obesity due to excess calories: Code(s): E66.01 - Morbid (severe) obesity due to excess calories Status: Acute Assessment and Plan: Lifestyle and diet modifications (7) GERD (gastroesophageal reflux disease): Code(s): K21.9 - Gastro-esophageal reflux disease without esophagitis Status: Chronic Assessment and Plan: PPI (8) Fatty liver: Code(s): K76.0 - Fatty (change of) liver, not elsewhere classified Status: Acute Assessment and Plan: Follow-up in outpatient setting Subjective Date/time seen: 12/03/23 13:07 Interval history: Patient feeling much better today. Her pain has resolved. Advance diet as tolerated. Patient having some loose stools but denies any melena or hematochezia. Exam Narrative: GENERAL: Comfortable, no acute distress HENMT: moist mucous membranes EYES: EOM intact b/l NECK: no lymphadenopathy RESPIRATORY: clear to auscultation CARDIO: RRR GI: soft, Nontender, bowel sounds present SKIN: no rashes EXTREMITIES: no edema, redness or tenderness Objective Data Vital Signs Vital Signs: Vital Signs - 24 hr 12/02/23 14:31 12/02/23 19:39 12/03/23 06:51 Temperature 97.7 F 98.4 F 98.3 F Pulse Rate 62 58 L 52 L Respiratory Rate 18 18 18 Blood Pressure 122/61 126/67 116/59 L Pulse Oximetry 97 97 97 Oxygen Delivery 12/03/23 08:20 Temperature Pulse Rate Respiratory Rate 18 Blood Pressure Pulse Oximetry 97 Oxygen Delivery Room Air Intake/Output Intake/Output: Intake & Output 11/30/23 12/01/23 12/02/23 12/03/23 23:59 23:59 23:59 23:59 Intake Total 1100 4005 1690 Output Total 900 Balance 1100 3105 1690 Meds/Results Medications: Active Medications Generic Name Dose Route Start Last Admin Trade Name Freq PRN Reason Stop Dose Admin Acetaminophen 650 mg 12/01/23 21:54 12/01/23 22:15 Acetaminophen 325 Mg Tablet PO 650 mg Q4H PRN Administration Mild Pain (1-3) or Fever Acetaminophen/Butalbital/Caffeine 1 tab 12/02/23 04:09 Acetaminophen/Butalbital/Caffeine 325-50-40 Mg Tablet (Fioricet) PO Q8H PRN MIGRAINE CANALES Alprazolam 0.5 mg 12/02/23 04:09 Alprazolam (*Crx) 0.5 Mg Tablet PO BID PRN anxiety Dicyclomine HCl 20 mg 12/02/23 09:00 12/03/23 12:45 Dicyclomine Hcl 10 Mg Capsule PO 20 mg QID JONATHAN Administration Escitalopram Oxalate 10 mg 12/02/23 09:00 12/03/23 08:16 Escitalopram Oxalate 10 Mg Tablet PO 10 mg DAILY JONATHAN Administration Hydromorphone HCl
[2023-12-03 14:18] VITALS: BP 119/56; PULSE 62; RESP 18; TEMP 36.7; O2SAT 96
--- NOTE | 2023-12-03 15:55 | PM.PNGS ---
Progress Note: A&P Assessment and Plan (1) Diverticulitis: Code(s): K57.92 - Diverticulitis of intestine, part unspecified, without perforation or abscess without bleeding Status: Acute Assessment and Plan: Patient continues to improve with IV antibiotics. Abdominal pain and tenderness improving. Will advance to a low fiber diet. Continue IV antibiotics. Possibly discharge home tomorrow on oral antibiotics if she continues to improve. (2) Urinary tract infection: Code(s): N39.0 - Urinary tract infection, site not specified Status: Acute Assessment and Plan: No growth on urine culture. (3) Morbid (severe) obesity due to excess calories: Code(s): E66.01 - Morbid (severe) obesity due to excess calories Status: Acute (4) Incisional hernia without obstruction or gangrene: Code(s): K43.2 - Incisional hernia without obstruction or gangrene Status: Acute Assessment and Plan: Still soft and reducible. No indication for any urgent surgical intervention. Would need to work on weight loss before considering elective repair. Plan I have discussed the patient's case and plan of care with Dr. Clark. Subjective Subjective Date/Time Seen: 12/03/23 15:55 Patient reports: no new complaints, feels better, pain is less, tolerating liquids well, flatus and afebrile Interval history: Patient doing well today. Exam Const: General: comfortable and no acute distress Nutritional Appearance: obese Orientation/consciousness: patient oriented x3 GI: Inspection: non-distended GI Palp: No Guarding due to palpation present (GI) and No Rebound tenderness present Auscultation: normal bowel sounds Other: Abdomen is obese and soft with mild tenderness in the LLQ, much improved. There is a midline infraumbilical scar with an infraumbilical incisional hernia that is soft, nontender, and reducible. Objective Data Vital Signs Vital Signs: Vital Signs - 24 hr 12/02/23 19:39 12/03/23 06:51 12/03/23 08:20 Temperature 98.4 F 98.3 F Pulse Rate 58 L 52 L Respiratory Rate 18 18 18 Blood Pressure 126/67 116/59 L Pulse Oximetry 97 97 97 Oxygen Delivery Room Air 12/03/23 14:18 Temperature 98.1 F Pulse Rate 62 Respiratory Rate 18 Blood Pressure 119/56 L Pulse Oximetry 96 Oxygen Delivery Intake/Output Intake/Output: Intake & Output 11/30/23 12/01/23 12/02/23 12/03/23 23:59 23:59 23:59 23:59 Intake Total 1100 4005 1890 Output Total 900 Balance 1100 3105 1890 Meds/Results Medications: Active Medications Generic Name Dose Route Start Last Admin Trade Name Freq PRN Reason Stop Dose Admin Acetaminophen 650 mg 12/01/23 21:54 12/01/23 22:15 Acetaminophen 325 Mg Tablet PO 650 mg Q4H PRN Administration Mild Pain (1-3) or Fever Acetaminophen/Butalbital/Caffeine 1 tab 12/02/23 04:09 Acetaminophen/Butalbital/Caffeine 325-50-40 Mg Tablet (Fioricet) PO Q8H PRN MIGRAINE CANALES Alprazolam 0.5 mg 12/02/23 04:09 Alprazolam (*Crx) 0.5 Mg Tablet PO BID PRN anxiety Dicyclomine HCl 20 mg 12/02/23 09:00 12/03/23 12:45 Dicyclomine Hcl 10 Mg Capsule PO 20 mg QID JONATHAN Administration Escitalopram Oxalate 10 mg 12/02/23 09:00 12/03/23 08:16 Escitalopram Oxalate 10 Mg Tablet PO 10 mg DAILY JONATHAN Administration Hydromorphone HCl 0.5 mg 12/01/23 21:54 12/02/23 00:36 Hydromorphone Hcl Inj (*Crx) 1 Mg/Ml Syr IV PUSH 0.5 mg Q4H PRN Administration Pain Rated 7-10 Metronidazole 500 mg in 100 mls @ 100 mls/hr 12/02/23 06:00 12/03/23 14:20 Flagyl 500 Mg/Iso Soln 100 Ml IVPB Infused Q8HR JONATHAN Infusion Ibuprofen 800 mg in 200 mls @ 400 mls/hr 12/02/23 10:15 Caldolor 800 Mg/200 Ml IVPB Q6H PRN Pain Rated 4-6 Piperacillin/Tazobactam/Dextrose 3.375 gm in 50 mls @ 100 mls/hr 12/02/23 12:00 12/03/23 11:54 Zosyn 3.375 Gm/Ns 50 Ml IVPB Infused Q6HR JONATHAN Infusion L
[2023-12-03 20:20] VITALS: PULSE 63; RESP 18; O2SAT 95
[2023-12-03 20:40] VITALS: BP 125/53; PULSE 63; RESP 18; TEMP 36.4; O2SAT 95
[2023-12-04 04:47] VITALS: BP 127/63; PULSE 61; RESP 16; TEMP 36.7; O2SAT 95
[2023-12-04] MEDS: PIPERACILLN/TAZ 3.375GM/NS50ML 3.375 GM/50 ML BAG IVPB (05:07)
[2023-12-04 05:27] LABS: Basophils Absolute Auto 0.1 K/mm3 (0.0-0.1); Basophils Percent Auto 0.8 % (0.2-1.2); Eosinophils Absolute Auto 0.3 K/mm3 (0-0.3); Eosinophils Percent Auto 3.7 % (0-4.4); Hemoglobin 10.2 g/dL (12.0-15.0); Immature Granulocyte Absolute 0.03 K/mm3 (0.00-0.031); Immature Granulocyte Percent A 0.4 % (0-0.5); Lymphocytes Absolute Auto 1.73 K/mm3 (0.9-3.2); Lymphocytes Percent Auto 20.6 % (18.3-44.2); Mean Corpuscular HGB Conc 29.1 g/dl (32-36); Mean Corpuscular Hemoglobin 26.4 pg (26-34); Mean Corpuscular Volume 90.7 fl (80-100); Mean Platelet Volume 9.1 fl (7.4-10.4); Monocytes Absolute Auto 0.5 K/mm3 (0.1-0.6); Monocytes Percent Auto 6.1 % (2.6-8.5); Neutrophils Absolute Auto 5.7 K/mm3 (1.3-6.7); Neutrophils Percent Auto 68.4 % (45.5-73.1); Platelet Count Result 395 k/mm3 (150-375); Red Blood Count 3.86 M/mm3 (4.2-5.4); Red Cell Distribution Width 16.5 % (11.5-14.5); White Blood Count 8.4 K/mm3 (4.5-10.0)
[2023-12-04] MEDS: LEVOTHYROXINE SODIUM 150 MCG TABLET PO (05:33)
[2023-12-04 05:39] LABS: Alanine Aminotransferase 12 U/L (6-35); Albumin Level 3.4 g/dL (3.5-5.1); Alkaline Phosphatase 88 U/L (38-126); Anion Gap 3 mmol/L (8-16); Aspartate Amino Transferase 16 U/L (14-36); Bilirubin,Total 0.4 mg/dL (0.2-1.3); Blood Urea Nitrogen 6 mg/dL (7-17); Calcium 8.7 mg/dL (8.4-10.2); Carbon Dioxide 29 mmol/L (22-30); Chloride 108 mmol/L (98-107); Estimated CRCL calculation 79 ml/min; Estimated Glomerular Filt Rate > 60; Glucose 102 mg/dL (65-110); Potassium 3.7 mmol/L (3.4-5.0); Sodium 140 mmol/L (137-145)
[2023-12-04] MEDS: metroNIDAZOLE 500 MG/ISO 100ML 500 MG/100 ML BAG 100 MG IVPB (05:40)
--- NOTE | 2023-12-04 08:05 | WPDPN ---
Progress Note: A&P Assessment and Plan (1) Incisional hernia without obstruction or gangrene: Code(s): K43.2 - Incisional hernia without obstruction or gangrene Status: Acute Assessment and Plan: Hernia is reducible. Continue observation for now. (2) Diverticulitis: Code(s): K57.92 - Diverticulitis of intestine, part unspecified, without perforation or abscess without bleeding Status: Acute Assessment and Plan: Diverticulitis has responded to non operative management with a course of IV antibiotics. Okay to discharge today on a course of oral antibiotics for the next 10 to 14 days. Follow-up in the office to see me in in 2 weeks. Likely would scheduled to get a colonoscopy done in the next 4 to 6 weeks. Subjective Date/time seen: 12/04/23 08:05 Interval history: Patient is doing much better today. Minimal left lower quadrant abdominal pain. She is having some loose bowel movements. She is tolerating a low-fiber diet. No fever. White blood cell count is normal at 8000. Exam GI: Other: Abdomen is obese soft. No tenderness to palpation left lower quadrant. Minimal tenderness to palpation of the lower midline abdominal wall incisional hernia. Hernia is reducible. Objective Data Vital Signs Vital Signs: Vital Signs - 24 hr 12/03/23 08:20 12/03/23 14:18 12/03/23 20:40 Temperature 36.7 C 36.4 C Pulse Rate 62 63 Respiratory Rate 18 18 18 Blood Pressure 119/56 L 125/53 L Pulse Oximetry 97 96 95 Oxygen Delivery Room Air 12/03/23 20:20 12/04/23 04:47 Temperature 36.7 C Pulse Rate 63 61 Respiratory Rate 18 16 Blood Pressure 127/63 Pulse Oximetry 95 95 Oxygen Delivery Room Air Intake/Output Intake/Output: Intake & Output 12/01/23 12/02/23 12/03/23 12/04/23 23:59 23:59 23:59 23:59 Intake Total 1100 4005 2610 100 Output Total 900 Balance 1100 3105 2610 100 Meds/Results Medications: Active Medications Generic Name Dose Route Start Last Admin Trade Name Freq PRN Reason Stop Dose Admin Acetaminophen 650 mg 12/01/23 21:54 12/01/23 22:15 Acetaminophen 325 Mg Tablet PO 650 mg Q4H PRN Administration Mild Pain (1-3) or Fever Acetaminophen/Butalbital/Caffeine 1 tab 12/02/23 04:09 Acetaminophen/Butalbital/Caffeine 325-50-40 Mg Tablet (Fioricet) PO Q8H PRN MIGRAINE CANALES Alprazolam 0.5 mg 12/02/23 04:09 Alprazolam (*Crx) 0.5 Mg Tablet PO BID PRN anxiety Dicyclomine HCl 20 mg 12/02/23 09:00 12/03/23 20:16 Dicyclomine Hcl 10 Mg Capsule PO 20 mg QID JONATHAN Administration Escitalopram Oxalate 10 mg 12/02/23 09:00 12/03/23 08:16 Escitalopram Oxalate 10 Mg Tablet PO 10 mg DAILY JONATHAN Administration Hydromorphone HCl 0.5 mg 12/01/23 21:54 12/02/23 00:36 Hydromorphone Hcl Inj (*Crx) 1 Mg/Ml Syr IV PUSH 0.5 mg Q4H PRN Administration Pain Rated 7-10 Metronidazole 500 mg in 100 mls @ 100 mls/hr 12/02/23 06:00 12/04/23 05:40 Flagyl 500 Mg/Iso Soln 100 Ml IVPB 100 mls/hr Q8HR JONATHAN Administration Ibuprofen 800 mg in 200 mls @ 400 mls/hr 12/02/23 10:15 Caldolor 800 Mg/200 Ml IVPB Q6H PRN Pain Rated 4-6 Piperacillin/Tazobactam/Dextrose 3.375 gm in 50 mls @ 100 mls/hr 12/02/23 12:00 12/04/23 05:37 Zosyn 3.375 Gm/Ns 50 Ml IVPB Infused Q6HR JONATHAN Infusion Levothyroxine Sodium 150 mcg 12/02/23 06:30 12/04/23 05:33 Levothyroxine Sodium 150 Mcg Tablet PO 150 mcg DAILY@0630 JONATHAN Administration Ondansetron HCl 4 mg 12/01/23 21:54 12/02/23 07:58 Ondansetron Inj 4 Mg/2 Ml Vial IV PUSH 4 mg Q4H PRN Administration Nausea Pantoprazole Sodium 40 mg 12/02/23 09:00 12/03/23 20:16 Pantoprazole 40 Mg Tablet PO 40 mg Q12HRT JONATHAN Administration Promethazine HCl 25 mg 12/02/23 04:09 Promethazine Hcl 25 Mg Tablet PO Q6H PRN nausea and vomiting Radiology Results: ITS Impressions Abdomen/Pelvis CT 12/01
[2023-12-04] MEDS: DICYCLOMINE HCL 10 MG CAPSULE 20 MG PO (09:40)
[2023-12-04] MEDS: ESCITALOPRAM OXALATE 10 MG TABLET PO (09:40)
[2023-12-04] MEDS: PANTOPRAZOLE 40 MG TABLET PO (09:40)
--- NOTE | 2023-12-04 12:12 | PM.DS ---
DS: Admitting Diagnosis Discharge Date 12/04/23 Admitting Diagnosis diverticulitis DS: Discharge Diagnosis Discharge Diagnosis (1) Diverticulitis: Code(s): K57.92 - Diverticulitis of intestine, part unspecified, without perforation or abscess without bleeding Status: Acute (2) LLQ abdominal pain: Code(s): R10.32 - Left lower quadrant pain Status: Acute (3) Urinary tract infection: Code(s): N39.0 - Urinary tract infection, site not specified Status: Acute (4) CRIS (acute kidney injury): Code(s): N17.9 - Acute kidney failure, unspecified Status: Acute Assessment and Plan: (5) Migraine: Code(s): G43.909 - Migraine, unspecified, not intractable, without status migrainosus Status: Acute (6) Morbid (severe) obesity due to excess calories: Code(s): E66.01 - Morbid (severe) obesity due to excess calories Status: Acute (7) GERD (gastroesophageal reflux disease): Code(s): K21.9 - Gastro-esophageal reflux disease without esophagitis Status: Chronic (8) Fatty liver: Code(s): K76.0 - Fatty (change of) liver, not elsewhere classified Status: Acute DS: Summary Hospital Course Hospital Course: This is a 63-year-old female with past medical history of morbid obesity, recurrent diverticulitis, hyperlipidemia, GERD, and IBS presents to the ED on 12/01/2023 due to left lower quadrant abdominal pain. Patient had been on 2 separate courses of antibiotic therapy as an outpatient for diverticulitis. She did not have any diarrhea, hematochezia or melena. CT of the abdomen pelvis showing severe complicated diverticulitis considerably worse than the prior study. She was started on IV antibiotic therapy and General surgery was consulted. General surgery did not believe surgery was necessary in this patient due to lack of abscess or perforation. Patient has a sedentary lifestyle as well as sedentary job. Diet and exercise were both discussed with the patient. Patient's diet was slowly advanced and she tolerated it well. Will discharge patient on 10 days of antibiotic therapy. Her labs and vital signs are stable and she is medically clear for discharge at this time. Time Spent with Patient Time attestation: Total time spent providing and/or coordinating discharge services: Exam Narrative: GENERAL: Comfortable, no acute distress, morbid obesity HENMT: moist mucous membranes EYES: EOM intact b/l NECK: no lymphadenopathy RESPIRATORY: clear to auscultation CARDIO: RRR GI: soft, Nontender, bowel sounds present SKIN: no rashes EXTREMITIES: no edema, redness or tenderness DS: Data Data Completed and Pending Labs on day of discharge: Labs from last 24 hours 12/04/23 05:00 WBC 8.4 RBC 3.86 L Hgb 10.2 L Hct 35.0 L MCV 90.7 MCH 26.4 MCHC 29.1 L RDW 16.5 H Plt Count 395 H MPV 9.1 Immature Gran % (Auto) 0.4 Neut % (Auto) 68.4 Lymph % (Auto) 20.6 [place] % (Auto) 6.1 Eos % (Auto) 3.7 Baso % (Auto) 0.8 Lymph # (Auto) 1.73 [place] # (Auto) 0.5 Eos # (Auto) 0.3 Baso # (Auto) 0.1 Abs Immat Gran (auto) 0.03 Absolute Neuts (auto) 5.7 Absolute Nucleated RBC 0.0 Nucleated RBC % 0.0 Sodium 140 Potassium 3.7 Chloride 108 H Carbon Dioxide 29 Anion Gap 3 L BUN 6 L Creatinine 0.90 Estim Creat Clear Calc 79 Estimated GFR > 60 Glucose 102 Calcium 8.7 Total Bilirubin 0.4 AST 16 ALT 12 Alkaline Phosphatase 88 Total Protein 7.0 Albumin 3.4 L Discharge Plan Discharge Attending physician on discharge: Vamsi Hernandez Consulting providers: Zelalem Clark Discharging Clinician: Marya Lay Patient Disposition: Home, Self-Care Activity: unlimited Diet: low fiber Discharge Instructions: May discharge home today when okay with hospitalist service. Follow-up see Dr. Mcdonough in the office in 2 weeks. Patient to call [phone] for an appointment. Oral anti
== END 2023-12-04 15:10 | disposition home or self-care (01) | DRG 392 ==
LOC: ANHED 21:54 → ANH3MEDSUR 23:51 → ANH2MED 12-02 00:11
PROVIDERS: Emergency Medicine; Nurse Practitioner Family; Admitting Provider Internal Medicine; Emergency Provider Emergency Medicine; PCP Family Medicine; Visit Provider Internal Medicine Critical Care Medicine
DX: K57.32 Diverticulitis of large intestine without perforation or abscess without bleeding (principal); Z68.42 Body mass index [BMI] 45.0-49.9, adult; N39.0 Urinary tract infection, site not specified; N17.9 Acute kidney failure, unspecified; K43.2 Incisional hernia without obstruction or gangrene; E03.9 Hypothyroidism, unspecified; K21.9 Gastro-esophageal reflux disease without esophagitis; F32.A Depression, unspecified; G43.909 Migraine, unspecified, not intractable, without status migrainosus; K76.0 Fatty (change of) liver, not elsewhere classified; K58.9 Irritable bowel syndrome, unspecified; E66.01 Morbid (severe) obesity due to excess calories; Z90.49 Acquired absence of other specified parts of digestive tract; Z90.710 Acquired absence of both cervix and uterus; Z90.721 Acquired absence of ovaries, unilateral; Z87.891 Personal history of nicotine dependence
CPT/HCPCS: 36415; 74176; 80048; 80053; 81001; 83605; 83690; 85025; 85027; 87086; 96361; 96374; 96375; 99285; A9270; J1170; J1836; J1956; J2270; J2405; J2543; J7030

== ENCOUNTER 2023-12-15 21:08 | Emergency (ER) | payer OTHER, SELFPAY ==
[2023-12-15 21:25] VITALS: BP 142/79; PULSE 73; RESP 18; TEMP 36.4; O2SAT 96
[2023-12-15] MEDS: KETOROLAC 30 MG/ML VIAL (*BKC) IV PUSH (22:39)
[2023-12-15] MEDS: ORPHENADRINE CITRATE 100 MG TABLET.ER PO (22:39)
--- NOTE | 2023-12-15 23:07 | ED.GENADULT ---
HPI - General Adult General Chief complaint: Extremity Injury, Upper Stated complaint: L shoulder pain X1.5 days Time Seen by Provider: 12/15/23 21:56 Source: patient Mode of arrival: ambulatory Limitations: no limitations History of Present Illness HPI narrative: This is a 63-year-old female with recent history of diverticulitis who presents to the ED for chief complaint of neck pain and stiffness that began yesterday. Denies any injury to the area trauma. Reports that she has had a couple of bouts diverticulitis over the past month. She reports that she has been lot of pain this feels that she has been tensing up a lot and feels that she may have pulled some muscles. Reports pain that started in the left shoulder and has since radiated up into the bilateral neck. Reports it is worse with certain movements and seems to be worse on the left. She has not tried any nydc-qyf-auozicq pain meds but feels some relief with ice and heat. Denies fevers, chills, nausea, vomiting. Related Data Home Medications Medication Instructions Recorded Confirmed sulfamethoxazole 800 1 tablet PO Q12H 12/02/23 12/02/23 mg-trimethoprim 160 mg tablet Allergies Allergy/AdvReac Type Severity Reaction Status Date / Time Iodinated Contrast Media Allergy Intermediate Hives, RED Verified 12/01/23 20:44 FACE ciprofloxacin Allergy Mild Rash Verified 12/01/23 20:44 codeine AdvReac Unknown Nausea Verified 12/01/23 20:44 Review of Systems Review of Systems: All systems as dictated in [facility] Past Medical History Medical History (Updated 12/16/23 @ 00:01 by Tonny Dotson) Adrenal adenoma BMI 45.0-49.9, adult COVID-19 vaccine series completed Diverticulosis of large intestine without hemorrhage With history of diverticulitis 2016 GERD (gastroesophageal reflux disease) Hepatic steatosis Hypothyroidism Irritable bowel disease Irritable bowel syndrome (IBS) Morbid (severe) obesity due to excess calories Obesity Surgical History Surgical History H/O hysterectomy for benign disease History of x2 History of unilateral oophorectomy History of ventral hernia repair 2009 - Open incisional hernia repair with Alloderm Hx of cholecystectomy Hx of tonsillectomy Family History Family History Sibling Hypertension Thyroid activity decreased Father , at age 79 Hypertension Abdominal aortic aneurysm Mother , at age 82 Hypertension Breast cancer, Onset Age: 52 Thyroid activity decreased Sibling , Covid-19 covid-19 2 siblings. Social History Social History Social History: She has been for 27 years. She has 2 children son who is 38 and daughter 34. 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 She is a former smoker. She does not drink alcohol. She denies illicit substance use. Primary care physician: Dr. Ron Malik code status: Full code surrogate decision maker: Smoking status: Never smoker Tobacco type: cigarettes Second hand tobacco smoke exposure: Yes Alcohol intake: never Substance use: never Substance use type: does not use Do You Feel Safe in your Home?: Yes Lack of Transportation: No Lack of Food: Never True Current Housing: I Have Housing Concerned About Future Housing: No Difficulty Paying Gas/Electric Bills: No Difficulty Paying for Meds: No Currently Unemployed: No Education: High School Diploma/GED Difficulty w/ Childcare or Family Care: No Living arrangements: with family Occupation/Education: occupation Additional occupation/education 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
[2023-12-15 23:26] VITALS: BP 139/83; PULSE 76; RESP 17; TEMP 36.9; O2SAT 99
== END 2023-12-15 23:27 | disposition home or self-care (01) ==
PROVIDERS: Emergency Provider Physician Assistant; PCP Family Medicine
DX: S16.1XXA Strain of muscle, fascia and tendon at neck level, initial encounter (principal); K57.90 Diverticulosis of intestine, part unspecified, without perforation or abscess without bleeding; K21.9 Gastro-esophageal reflux disease without esophagitis; E03.9 Hypothyroidism, unspecified; K76.0 Fatty (change of) liver, not elsewhere classified; X58.XXXA Exposure to other specified factors, initial encounter
CPT/HCPCS: 96374; 99284; A9270; J1885

== ENCOUNTER → 2024-01-05 15:01 | Outpatient (CLI) | payer OTHER, SELFPAY ==
--- NOTE | ~2024-01-05 | MM_ITS ---
EXAMINATION: MM screening silvia BI w chai HISTORY: Screening mammogram TECHNIQUE: Craniocaudal and mediolateral oblique 3-D tomosynthesis images were obtained and synthetic 2-D images were generated. CAD analysis was submitted and interpreted. COMPARISON: 01/28/2022, 12/23/2019 bilateral screening mammogram examinations BREAST PARENCHYMAL COMPOSITION: The breasts are almost entirely fatty. FINDINGS: There is no evidence of suspicious mass, calcification, or architectural distortion to sugg est malignancy in either breast. There has been no suspicious interval change. IMPRESSION: 1. No mammographic evidence of malignancy. 2. Recommend routine screening mammography in one year. BI-RADS Category 1: Negative Reviewed, dictated and finalized at location A. BU[facility]ER
== END ==
PROVIDERS: PCP Family Medicine; Visit Provider Family Medicine
DX: Z12.31 Encounter for screening mammogram for malignant neoplasm of breast (principal)
CPT/HCPCS: 77063; 77067

== ENCOUNTER 2024-02-05 01:27 | Day surgery (SDC) | payer OTHER, SELFPAY ==
[2024-01-25 13:36] VITALS: BMI 47.7
--- NOTE | 2024-02-03 14:59 | SUR.PREOP ---
Patient called regarding upcoming procedure. Reviewed preop instructions, appointment times, and procedure prep.
[2024-02-05 11:20] VITALS: BP 146/79; PULSE 85; RESP 18; TEMP 36.1; O2SAT 98
--- NOTE | 2024-02-05 11:28 | WPDANESEPPF ---
Anes - Initial Pre Proc Eval Procedure: Operation Date: 02/05/24 13:00 Proposed Procedures p Colonoscopy - Francisco Madrid MD Date/Time: 02/05/24 11:28 Surgeon: Francisco Madrid MD Pre Op Diagnosis: Diverticulitis Patient Data Age: 63 Gender: F Height: 1.65 m Weight: 128.7 kg Last Vital Signs Temp 97.0 F L 02/05/24 11:20 Pulse 85 02/05/24 11:20 Resp 18 02/05/24 11:20 BP 146/79 H 02/05/24 11:20 Pulse Ox 98 02/05/24 11:20 O2 Del Method Room Air 02/05/24 11:20 Allergies Allergy/AdvReac Type Severity Reaction Status Date / Time Iodinated Contrast Media Allergy Intermediate Hives, RED Verified 02/05/24 11:19 FACE ciprofloxacin Allergy Mild Rash Verified 02/05/24 11:19 metronidazole [From Flagyl] AdvReac Mild Swelling Verified 02/05/24 11:19 codeine AdvReac Unknown Nausea Verified 02/05/24 11:19 Home Medications Medication Instructions Recorded Confirmed Type alprazolam 0.5 mg tablet 0.5 mg PO BID PRN anxiety #20 tabs 01/17/22 01/25/24 Rx escitalopram oxalate 10 mg tablet 10 mg PO DAILY #90 tabs 06/12/23 01/25/24 Rx omeprazole 40 mg capsule,delayed 40 mg PO DAILY #90 caps 07/28/23 01/25/24 Rx release levothyroxine 150 mcg tablet 150 mcg PO DAILY #90 tabs 10/28/23 01/25/24 Rx kbmjexhdxu-qgquxfkmvlxmh-kiqepakc 1 cap PO Q8H PRN .migraine #60 caps 12/15/23 01/25/24 Rx 50 mg-300 mg-40 mg capsule (Fioricet) furosemide 20 mg tablet (Lasix) 20 mg PO QAM #90 tabs 12/18/23 01/25/24 Rx dicyclomine 20 mg tablet 20 mg PO QID #120 tabs 01/05/24 01/25/24 Rx lactobacillus combination no.8 3 3,000,000 cell PO DAILY 01/25/24 01/25/24 History billion cell capsule meloxicam 15 mg tablet 15 mg PO DAILY PRN Pain 01/25/24 01/25/24 History Patient hx anesthesia problems: none Family hx anesthesia problems: none Results Review: All pre-operative results and documents have been reviewed as part of the pre-operative evaluation. [facility] Past Medical History Medical History Acute UTI Adrenal adenoma Bloating BMI 45.0-49.9, adult Bronchitis Cellulitis Cough COVID-19 vaccine series completed Diverticulosis of large intestine without hemorrhage With history of diverticulitis 2016 GERD (gastroesophageal reflux disease) Hepatic steatosis Hypothyroidism Influenza A Irritable bowel disease Irritable bowel syndrome (IBS) Morbid (severe) obesity due to excess calories Obesity Surgical History Surgical History H/O hysterectomy for benign disease History of x2 History of unilateral oophorectomy History of ventral hernia repair 2009 - Open incisional hernia repair with Alloderm Hx of cholecystectomy Hx of tonsillectomy Family History Family History Sibling Hypertension Thyroid activity decreased Father , at age 79 Hypertension Abdominal aortic aneurysm Mother , at age 82 Hypertension Breast cancer, Onset Age: 52 Thyroid activity decreased Sibling , Covid-19 covid-19 2 siblings. Social History Social History Social History: She has been for 27 years. She has 2 children son who is 38 and daughter 34. 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 She is a former smoker. She does not drink alcohol. She denies illicit substance use. Primary care physician: Dr. Ron Malik code status: Full code surrogate decision maker: Smoking status: Never smoker Tobacco type: cigarettes Second hand tobacco smoke exposure: Yes Alcohol intake: never Substance use: never Substance use type: does not use Do You Feel Safe in your Home?: Yes Lack of Transportation: No Lack of Food: N
--- NOTE | 2024-02-05 11:29 | PM.HPGS ---
History of Present Illness History of Present Illness Consent: Risks, benefits, and alternatives have been discussed and questions answered. Patient agrees to proceed with procedure. 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 She has seen surgery and will see in few more days urology. Review of Systems Review of Systems: All systems reviewed & are unremarkable except as noted in HPI and below [facility] Past Medical History Medical History (Updated 02/05/24 @ 11:31 by Francisco Madrid MD) Acute UTI Adrenal adenoma Bloating BMI 45.0-49.9, adult Bronchitis Cellulitis Colovesical fistula Cough COVID-19 vaccine series completed Diverticulosis of large intestine without hemorrhage With history of diverticulitis 2016 GERD (gastroesophageal reflux disease) Hepatic steatosis Hypothyroidism Influenza A Irritable bowel disease Irritable bowel syndrome (IBS) Morbid (severe) obesity due to excess calories Obesity Surgical History Surgical History H/O hysterectomy for benign disease History of x2 History of unilateral oophorectomy History of ventral hernia repair 2010 - Open incisional hernia repair with Alloderm Hx of cholecystectomy Hx of tonsillectomy Family History Family History Sibling Hypertension Thyroid activity decreased Father , at age 79 Hypertension Abdominal aortic aneurysm Mother , at age 82 Hypertension Breast cancer, Onset Age: 52 Thyroid activity decreased Sibling , Covid-19 covid-19 2 siblings. Social History Social History Social History: She has been for 27 years. She has 2 children son who is 38 and daughter 34. 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 She is a former smoker. She does not drink alcohol. She denies illicit substance use. Primary care physician: Dr. Ron Malik code status: Full code surrogate decision maker: Smoking status: Never smoker Tobacco type: cigarettes Second hand tobacco smoke exposure: Yes Alcohol intake: never Substance use: never Substance use type: does not use Do You Feel Safe in your Home?: Yes Lack of Transportation: No Lack of Food: Never True Current Housing: I Have Housing Concerned About Future Housing: No Difficulty Paying Gas/Electric Bills: No Difficulty Paying for Meds: No Currently Unemployed: No Education: High School Diploma/GED Difficulty w/ Childcare or Family Care: No Living arrangements: with family Occupation/Education: occupation Additional occupation/education comments: casualty manager [employer] Gender identity (if verbalized by the patient): Female Spiritual care concerns: No Meds Home Medications and Allergies Home Medications Medication Instructions Recorded Confirmed Type alprazolam 0.5 mg tablet 0.5 mg PO BID PRN anxiety #20 tabs 01/17/22 01/25/24 Rx escitalopram oxalate 10 mg tablet 10 mg PO DAILY #90 tabs 06/12/23 01/25/24 Rx omeprazole 40 mg capsule,delayed 40 mg PO DAILY #90 caps 07/28/23 01/25/24 Rx release levothyroxine 150 mcg tablet 150 mcg PO DAILY #90 tabs 10/28/23 01/25/24 Rx rszezjosat-fweydwtxzxbhn-ozqogapm 1 cap PO Q8H PRN .migraine #60 caps 12/15/23 01/25/24 Rx 50 mg-300 mg-40 mg capsule (Fioricet) furosemide 20 mg tablet (Lasix) 20 mg PO QAM #90 tabs 12/18/23 01/25/24 Rx dicyclomine 20 mg tablet 20 mg PO QID #120 tabs 01/05/24 01/25/24 Rx lactobacillus combination no.8 3 3,000,000 cell PO DAILY 01/25/24 01/25/24 History billion cell capsu
[2024-02-05] MEDS: LACTATED RINGERS 1,000 ML 150 ML IV CONT (11:34)
[2024-02-05 11:57] VITALS: BP 124/67; PULSE 74; RESP 22; O2SAT 95
[2024-02-05 12:07] VITALS: BP 125/66; PULSE 65; RESP 15; O2SAT 97
[2024-02-05 12:17] VITALS: BP 111/55; PULSE 60; RESP 13; O2SAT 97
== END 2024-02-05 12:21 | disposition home or self-care (01) ==
PROVIDERS: PCP Family Medicine; Referring Provider Surgery; Visit Provider Internal Medicine Gastroenterology
PROC: 0DJD8ZZ Inspection of Lower Intestinal Tract, Via Natural or Artificial Opening Endoscopic (ICD-10-PCS; CPT 45378; principal; 2024-02-05 13:00)
DX: Z09 Encounter for follow-up examination after completed treatment for conditions other than malignant neoplasm (principal); N32.1 Vesicointestinal fistula; K57.30 Diverticulosis of large intestine without perforation or abscess without bleeding; K56.609 Unspecified intestinal obstruction, unspecified as to partial versus complete obstruction; K64.8 Other hemorrhoids; Z87.19 Personal history of other diseases of the digestive system; K21.9 Gastro-esophageal reflux disease without esophagitis; E03.9 Hypothyroidism, unspecified; K76.0 Fatty (change of) liver, not elsewhere classified; E66.01 Morbid (severe) obesity due to excess calories; Z68.42 Body mass index [BMI] 45.0-49.9, adult
CPT/HCPCS: 45378; J2704; J7120

== ENCOUNTER 2024-04-15 10:47 | Emergency (ER) | payer OTHER, SELFPAY ==
--- NOTE | ~2024-04-15 | US_ITS ---
EXAMINATION:US venous doppler LE BI INDICATION:Swelling and redness. Treated for spider bite. TECHNIQUE: Multiple grayscale, color flow and Doppler images of the right and left lower extremity de ep venous systems were obtained and reviewed. COMPARISON:No prior studies for comparison. FINDINGS: The common femoral, superficial femoral and popliteal veins demonstrate normal respiratory variation, augmentation and compressibility. Color flow is also seen within the posterior tibial, pe roneal, greater saphenous and profunda veins. There are bilateral inguinal lymph node enlargement, li kristi reactive. IMPRESSION: 1: No lower extremity deep venous thrombosis. Reviewed, dictated and finalized at location B.
[2024-04-15 10:59] VITALS: BP 167/85; PULSE 79; RESP 16; TEMP 36.6; O2SAT 96
[2024-04-15] MEDS: HYDROcodone/acetaminophen (*CRX) 5-325 MG TABLET 1 TAB PO (11:31)
[2024-04-15 12:33] LABS: Basophils Absolute Auto 0.1 K/mm3 (0.0-0.1); Basophils Percent Auto 0.9 % (0.2-1.2); Eosinophils Absolute Auto 0.3 K/mm3 (0-0.3); Eosinophils Percent Auto 3.4 % (0-4.4); Hematocrit 35.8 % (37.0-47.0); Hemoglobin 10.9 g/dL (12.0-15.0); Immature Granulocyte Absolute 0.03 K/mm3 (0.00-0.031); Immature Granulocyte Percent A 0.3 % (0-0.5); Lymphocytes Absolute Auto 1.54 K/mm3 (0.9-3.2); Lymphocytes Percent Auto 17.3 % (18.3-44.2); Mean Corpuscular HGB Conc 30.4 g/dl (32-36); Mean Corpuscular Hemoglobin 27.7 pg (26-34); Mean Corpuscular Volume 90.9 fl (80-100); Monocytes Absolute Auto 0.6 K/mm3 (0.1-0.6); Monocytes Percent Auto 6.4 % (2.6-8.5); Neutrophils Absolute Auto 6.4 K/mm3 (1.3-6.7); Neutrophils Percent Auto 71.7 % (45.5-73.1); Platelet Count Result 385 k/mm3 (150-375); Red Blood Count 3.94 M/mm3 (4.2-5.4); Red Cell Distribution Width 15.9 % (11.5-14.5); White Blood Count 8.9 K/mm3 (4.5-10.0)
[2024-04-15 12:43] LABS: Alanine Aminotransferase 12 U/L (6-35); Albumin Level 4.3 g/dL (3.5-5.1); Alkaline Phosphatase 104 U/L (38-126); Anion Gap 8 mmol/L (4-12); Aspartate Amino Transferase 18 U/L (14-36); Bilirubin,Total 0.6 mg/dL (0.2-1.3); Blood Urea Nitrogen 15 mg/dL (7-17); Carbon Dioxide 24 mmol/L (22-30); Chloride 108 mmol/L (98-107); Estimated CRCL calculation 78 ml/min; Estimated Glomerular Filt Rate > 60; Glucose 89 mg/dL (65-110); Potassium 4.6 mmol/L (3.4-5.0); Sodium 140 mmol/L (137-145)
[2024-04-15 12:58] VITALS: BP 143/74; PULSE 63; RESP 16; O2SAT 93
--- NOTE | 2024-04-15 13:42 | ED.SKABFB ---
HPI - Skin/Abscess/Foreign Bdy General Chief complaint: Skin/Abscess/Foreign Body Stated complaint: L calf & R ankle swollen/red, took abx for 30 days Time Seen by Provider: 04/15/24 11:02 History of Present Illness HPI narrative: Patient is a 63-year-old female who presents ER with redness to the posterior right calf. Ongoing for 30 days. Initially thought she was bit by a bug. She has been on doxycycline, dapsone, and is nearing the end of her clindamycin course. No fevers or chills or sweats. She has applied topical antibiotic and has been taking anti-inflammatories. No chest pain or chest pressure. She started developing a nickel sized area over the left lateral malleolus that is similar in causing her concern. No fevers or chills. No trauma. Related Data Home Medications Medication Instructions Recorded Confirmed lactobacillus combination no.8 3 3,000,000 cell PO DAILY 01/25/24 04/04/24 billion cell capsule Allergies Allergy/AdvReac Type Severity Reaction Status Date / Time Iodinated Contrast Media Allergy Intermediate Hives, RED Verified 04/15/24 10:58 FACE ciprofloxacin Allergy Mild Rash Verified 04/15/24 10:58 metronidazole [From Flagyl] AdvReac Mild Swelling Verified 04/15/24 10:58 codeine AdvReac Unknown Nausea Verified 04/15/24 10:58 Review of Systems Review of Systems: All systems reviewed & are unremarkable except as noted in HPI and below Constitutional: Constitutional: Reports no additional constitutional complaints Cardiovascular: Cardiovascular: Reports no additional cardiovascular complaints Respiratory: Respiratory: Reports no additional respiratory complaints Integumentary/Breasts: Skin/Breast: Denies pruritus, Reports erythema and Denies rash [facility] Past Medical History Medical History (Updated 04/15/24 @ 13:47 by Malik Lopez MD) Acute UTI Adrenal adenoma Bloating BMI 45.0-49.9, adult Bronchitis Cellulitis Cellulitis of leg, right Colovesical fistula Cough COVID-19 vaccine series completed Diverticulosis of large intestine without hemorrhage With history of diverticulitis 2016 GERD (gastroesophageal reflux disease) Hepatic steatosis Hypothyroidism Influenza A Irritable bowel disease Irritable bowel syndrome (IBS) Morbid (severe) obesity due to excess calories Obesity Strain of trapezius muscle Urinary tract infection Surgical History Surgical History H/O hysterectomy for benign disease History of x2 History of unilateral oophorectomy History of ventral hernia repair 2009 - Open incisional hernia repair with Alloderm Hx of cholecystectomy Hx of colonoscopy Hx of tonsillectomy Family History Family History Sibling Hypertension Thyroid activity decreased Father , at age 79 Hypertension Abdominal aortic aneurysm Mother , at age 82 Hypertension Breast cancer, Onset Age: 52 Thyroid activity decreased Sibling , Covid-19 covid-19 2 siblings, 1 [place]. Social History Social History Social History: She has been for 27 years. She has 2 children son who is 38 and daughter 34. 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 She is a former smoker. She does not drink alcohol. She denies illicit substance use. Primary care physician: Dr. Ron Malik code status: Full code surrogate decision maker: Smoking status: Former smoker Tobacco type: cigarettes Second hand tobacco smoke exposure: Yes Smoking end date: 05/01/93 Alcohol intake: never Substance use: never Substance use type: does not use Do You Feel Safe in your Home?: Yes Lack of Transportation: No Lack of Food: Never True Current Housing: I Have Housing Concern
[2024-04-15 14:12] VITALS: BP 168/81; PULSE 64; RESP 14; O2SAT 95
== END 2024-04-15 14:13 | disposition home or self-care (01) ==
PROVIDERS: Emergency Provider Emergency Medicine; PCP Family Medicine
DX: L30.9 Dermatitis, unspecified (principal); E03.9 Hypothyroidism, unspecified; E66.01 Morbid (severe) obesity due to excess calories; Z68.42 Body mass index [BMI] 45.0-49.9, adult; K21.9 Gastro-esophageal reflux disease without esophagitis; K58.9 Irritable bowel syndrome, unspecified; Z87.440 Personal history of urinary (tract) infections; Z87.891 Personal history of nicotine dependence; Z90.710 Acquired absence of both cervix and uterus; Z90.721 Acquired absence of ovaries, unilateral; Z90.49 Acquired absence of other specified parts of digestive tract; Z79.899 Other long term (current) drug therapy
CPT/HCPCS: 36415; 80053; 85025; 93970; 99284; A9270

== ENCOUNTER 2025-02-07 08:35 | Outpatient (CLI) | payer OTHER, SELFPAY ==
--- NOTE | ~2025-02-07 | US_ITS ---
Abdominal Sonogram: Real-time sonographic imaging of the abdomen was performed. Clinical History: Left lower quadrant pain Findings: The liver appears normal with no evidence of mass lesion or bile duct dilatation. Main por glenys vein demonstrates normal direction of flow. The spleen is normal in size without evidence of foca l lesion. The gallbladder is absent, compatible prior cholecystectomy. The common bile duct measures 8 mm. The visualized pancreas, aorta, and IVC are unremarkable. The right kidney measures 11.7 cm in length and the left kidney measures 10.2 cm. There is no hydronephrosis or renal calculus. No abn ormality seen in the left lower quadrant at the area of pain. Impression: No abnormality seen in the left lower quadrant area of pain. Status post cholecystectomy. Reviewed, dictated and finalized at [facility]. Impression: No abnormality seen in the left lower quadrant area of pain. Status post cholecystectomy.
== END 2025-02-07 08:36 | disposition home or self-care (01) ==
LOC: MICIMG 08:35
PROVIDERS: PCP Family Medicine; Visit Provider Nurse Practitioner Adult Health
DX: R10.32 Left lower quadrant pain (principal); Z90.49 Acquired absence of other specified parts of digestive tract
CPT/HCPCS: 76700

== ENCOUNTER 2025-08-28 14:15 | Outpatient (CLI) | payer OTHER, SELFPAY ==
--- NOTE | ~2025-08-28 | MM_ITS ---
EXAMINATION: MM screening silvia BI w chai HISTORY: Screening TECHNIQUE: Craniocaudal and mediolateral oblique 3-D tomosynthesis images were obtained and synthetic 2-D images were generated. CAD analysis was submitted and interpreted. COMPARISON: Comparison to multiple prior studies sequentially, with oldest reviewed study dated 02/04/2016. BREAST PARENCHYMAL COMPOSITION: Not Dense: The breasts are almost entirely fatty. FINDINGS: There is no evidence of suspicious mass, calcification, or architectural distortion to suggest malignancy in either breast. There has been no suspicious interval change. IMPRESSION: 1. No mammographic evidence of malignancy. 2. Recommend routine screening mammography in one year. BI-RADS Category 1: Negative Reviewed, dictated and finalized at location B.
== END 2025-08-28 14:16 | disposition home or self-care (01) ==
LOC: MICIMG 14:17
PROVIDERS: PCP Family Medicine; Visit Provider Family Medicine
DX: Z12.31 Encounter for screening mammogram for malignant neoplasm of breast (principal)
CPT/HCPCS: 77063; 77067